=== PATIENT | male | born 1945 | race Caucasian/White ===

== ENCOUNTER 2022-12-03 10:33 | Outpatient (CLI) | payer MEDICARE, SELFPAY ==
[2022-12-03 15:23] LABS: Basophils Absolute Auto 0.1 K/mm3 (0.0-0.1); Basophils Percent Auto 0.8 % (0.2-1.2); Eosinophils Absolute Auto 0.5 K/mm3 (0-0.3); Eosinophils Percent Auto 5.2 % (0-4.4); Hemoglobin 13.8 g/dL (14.0-18.0); Immature Granulocyte Absolute 0.03 K/mm3 (0.00-0.031); Immature Granulocyte Percent A 0.3 % (0-0.5); Lymphocytes Absolute Auto 1.45 K/mm3 (0.9-3.2); Lymphocytes Percent Auto 16.5 % (18.3-44.2); Mean Corpuscular HGB Conc 32.1 g/dl (32-36); Mean Corpuscular Hemoglobin 30.9 pg (26-34); Mean Corpuscular Volume 96.2 fl (80-100); Mean Platelet Volume 10.9 fl (7.4-10.4); Monocytes Absolute Auto 0.9 K/mm3 (0.1-0.6); Monocytes Percent Auto 10.3 % (2.6-8.5); Neutrophils Absolute Auto 5.9 K/mm3 (1.3-6.7); Neutrophils Percent Auto 66.9 % (45.5-73.1); Platelet Count Result 258 k/mm3 (150-375); Red Blood Count 4.47 M/mm3 (4.6-6.20); Red Cell Distribution Width 12.6 % (11.5-14.5); White Blood Count 8.8 K/mm3 (4.5-10.0)
[2022-12-03 17:15] LABS: Alanine Aminotransferase 21 U/L (6-50); Albumin Level 4.9 g/dL (3.5-5.1); Alkaline Phosphatase 129 U/L (38-126); Anion Gap 9 mmol/L (8-16); Aspartate Amino Transferase 29 U/L (17-59); Bilirubin,Total 0.4 mg/dL (0.2-1.3); Blood Urea Nitrogen 28 mg/dL (9-20); Calcium 9.9 mg/dL (8.4-10.2); Carbon Dioxide 26 mmol/L (22-30); Chloride 107 mmol/L (98-107); Cholesterol 141 mg/dL (0-200); Estimated Glomerular Filt Rate 42; Glucose 94 mg/dL (65-110); HDL Direct 35 mg/dL; Potassium 4.9 mmol/L (3.4-5.0); Sodium 142 mmol/L (137-145); Triglycerides 162 mg/dL (<150)
[2022-12-03 17:25] LABS: LDL Cholesterol Direct 68 mg/dL
== END 2022-12-03 10:34 | disposition home or self-care (01) ==
LOC: ANHGOSHLAB 10:35
PROVIDERS: PCP Internal Medicine; Visit Provider Nurse Practitioner
DX: R97.20 Elevated prostate specific antigen [PSA] (principal); I10 Essential (primary) hypertension
CPT/HCPCS: 36415; 80053; 80061; 84153; 85025

== ENCOUNTER 2023-11-29 13:54 | Outpatient (CLI) | payer MEDICARE, SELFPAY ==
--- NOTE | ~2023-11-29 | US_ITS ---
EXAMINATION: US carotid duplex BI DATE: 11/29/2023 15:46 INDICATION: Unspecified visual disturbance TECHNIQUE: Grayscale, color Doppler, and pulsed Doppler images of the cervical carotid arteries were obtained. The degree of vessel stenosis is placed in one of the following categories: normal, <50%, 5 0-69%, >=70% but less than near-occlusion, near-occlusion, or total occlusion. Note that percent sten osis relative to normal distal artery lumen diameter is indirectly measured from velocity measurement s as described by Juve, et al. Radiology 2003; 229:340-346. COMPARISON: None. FINDINGS: RIGHT: The right common carotid artery (CCA) peak systolic velocity (PSV) is 85 cm/s. The right internal car otid artery (ICA) PSV is 86 cm/s. The right ICA end-diastolic velocity (EDV) is 20 cm/s. The right IC A/CCA PSV ratio is 1.0. Grayscale and color Doppler images yield an estimate of <50% diameter reducti on from plaque in the ICA. The external carotid artery (ECA) PSV is 113 cm/s. There is antegrade flow in the right vertebral artery. LEFT: The left CCA PSV is 71 cm/s. The left ICA PSV is 67 cm/s. The left ICA EDV is 21 cm/s. The left ICA/C CA PSV ratio is 1.0. Grayscale and color Doppler images yield an estimate of <50% diameter reduction from plaque in the ICA. The ECA PSV is 85 cm/s. There is antegrade flow in the left vertebral artery. IMPRESSION: 1. <50% stenosis in the right internal carotid artery. 2. <50% stenosis in the left internal carotid artery. Reviewed, dictated and finalized at location B.
== END 2023-11-29 13:55 | disposition home or self-care (01) ==
PROVIDERS: PCP Internal Medicine; Visit Provider Nurse Practitioner
DX: I65.23 Occlusion and stenosis of bilateral carotid arteries (principal)
CPT/HCPCS: 93880

== ENCOUNTER 2024-09-04 08:10 | Emergency (ER) | payer MEDICARE, MEDICAID, SELFPAY ==
--- NOTE | ~2024-09-04 | XR_ITS ---
XR hand RT min 3V, XR wrist RT min 3V 09/04/2024 08:46 Indication: Right hand pain and 4 views right wrist Procedure: 3 views right hand Comparison: No prior studies for comparison. Findings: There is severe polyarticular osteoarthritis of the hand with erosive changes at the third DIP joint. There is advanced polyarticular osteoarthritis of the right wrist with scapholunate wideni ng. There is atherosclerosis. 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 Reviewed, dictated and finalized at location A. 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
[2024-09-04 08:08] VITALS: BP 150/99; PULSE 83; RESP 16; TEMP 36.4; O2SAT 99
--- NOTE | 2024-09-04 08:16 | ED_ITS ---
HPI - General Adult General Chief complaint: Extremity Injury, Lower Stated complaint: R knee pain History of Present Illness HPI narrative: 79-year-old male present to the emergency department for evaluation for right wrist and right hand pain. Patient is unsure if he had any injury. Patient states the pain has been bothering him for the last few days. Patient does have tenderness across the dorsum of the right hand. No evidence of cellulitis. Related Data Allergies Allergy/AdvReac Type Severity Reaction Status Date / Time No Known Allergies Allergy Verified 09/04/24 08:19 Review of Systems Review of Systems: All systems reviewed & are unremarkable except as noted in HPI and below PMFSH Past Medical History Medical History Swallowing difficulty Hyperkalemia Hypercalcemia CKD (chronic kidney disease) Insomnia Hypertension Family History Family History Father Patient's father is Mother Natural with unknown cause Social History Social History Social History: Caffeine- daily Smoking status: Never smoker Alcohol intake: never Substance use: never Substance use type: does not use Do You Feel Safe in your Home?: Yes Lack of Transportation: No Lack of Food: Never True Current Housing: I Have Housing Concerned About Future Housing: No Difficulty Paying Gas/Electric Bills: No Difficulty Paying for Meds: No Currently Unemployed: No Education: High School Diploma/GED Difficulty w/ Childcare or Family Care: No Exam Narrative: APPEARANCE: Well appearing, no pain, no distress, well-nourished. HEAD: normocephalic, atraumatic. EYES: PERRLA/EOMI, conjunctivae clear. NOSE: Normal no drainage EARS:TMS clear with good light reflex. THROAT: Pharynx clear, no exudate. NECK: Supple. No adenopathy, no masses. RESPIRATORY: Airway patent, respirations nonlabored. Clear to auscultation bilaterally, no rales, rhonchi, wheezing. CARDIOVASCULAR: Regular rate and rhythm without murmurs rubs or gallops. ABDOMINAL: Soft, nontender, nondistended, normal bowel sounds MUSCULOSKELETAL: Tenderness to right hand with limited range of motion secondary to discomfort NEURO: Alert. Cranial nerves II through XII intact. Good gait. Good coordination SKIN: No evidence cellulitis, mild warmth to right hand Course Vital Signs Vital signs: Vital Signs Temperature 97.6 F 09/04/24 08:08 Pulse Rate 83 09/04/24 08:08 Respiratory Rate 16 09/04/24 08:08 Blood Pressure 150/99 H 09/04/24 08:08 Pulse Oximetry 99 09/04/24 08:08 Oxygen Delivery Room Air 09/04/24 08:08 Temperature 97.6 F 09/04/24 08:08 Pulse Rate 76 09/04/24 09:49 Respiratory Rate 18 09/04/24 09:49 Blood Pressure 148/94 H 09/04/24 09:49 Pulse Oximetry 100 09/04/24 09:49 Oxygen Delivery Room Air 09/04/24 08:08 Medical Decision Making MDM Narrative Medical decision making narrative: 79-year-old male presenting to the emergency department for evaluation for right hand tenderness to palpation x-rays were negative for acute fracture dislocation. Patient does not appear to have a cellulitis. Patient does have palpatory arthritis with degenerative changes. Patient was provided an Gray wrap for comfort, treated with IM Toradol emergency department patient will be discharged home with a short course of naproxen. Patient was updated the results of the workup patient was comfortable plan for discharge and close follow-up. Patient was encouraged close follow-up with his primary care physician Differential Diagnosis Differential Diagnosis: Hand fracture, wrist fracture, arthritis, cellulitis Vital Signs Vital Signs: Vital Signs Temperature 97.6 F 09/04/24 08:08 Pulse Rate 83 09/04/24 08:08 Respiratory Rate 16 09/04/24 08:08 Blood Pressure 150/99 H 09/04/24 08:08 Pulse Oximetry 99 09/04/24 08:08 Oxygen Delivery Room Air 09/04/24 08:08 Temperature 97.6 F 09/04/24 08:08 Pulse Rate 76 09/04/24 09:49 Respiratory Rate 18 09/04/24 09:49 Blood Pressure 148/94 H 09/04/24 09:49 Pulse Oximetry 100 09/04/24 09:49 Oxygen Delivery Room Air 09/04/24 08:08 Imaging Data Radiologist's impression: Impressions Hand X-Ray 09/04/24 08:48 Impression: 1: 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 Discharge Plan Discharge Clinical Impression: Inflammatory arthritis Patient Disposition: Home, Self-Care Condition: Stable Instructions: Antibiotic Form, Arthralgia (ED) Additional Instructions: Naproxen as directed for wrist pain, Gray wrap for comfort, have close follow-up with your primary care physician. If you have any worsening symptoms then please call or return to the emergency department. Patient Language: Kazakh Prescriptions: New naproxen 500 mg tablet 500 mg PO BID 5 Days Qty: 10 0RF No Action amlodipine 10 mg tablet See Rx Instructions .ROUTE .COMPLEX Qty: 90 3RF Dose Instruction: TAKE 1 TABLET BY MOUTH DAILY Rx Instructions: TAKE 1 TABLET BY MOUTH DAILY atorvastatin 10 mg tablet 10 mg PO QHS Qty: 90 3RF hydrochlorothiazide 25 mg tablet See Rx Instructions .ROUTE .COMPLEX Qty: 90 3RF Dose Instruction: TAKE 1 TABLET BY MOUTH DAILY Rx Instructions: TAKE 1 TABLET BY MOUTH DAILY lisinopril 40 mg tablet 40 mg PO DAILY Qty: 90 3RF doxepin 10 mg capsule 10 mg PO QHS PRN (Reason: sleep) Qty: 30 1RF Follow-up/Referrals: Abe Walden, [Primary Care Provider] -
[2024-09-04] MEDS: KETOROLAC 30 MG/ML VIAL (*BKC) IM (09:06)
[2024-09-04 09:11] VITALS: BP 164/91; PULSE 73; RESP 20; O2SAT 98
[2024-09-04 09:49] VITALS: BP 148/94; PULSE 76; RESP 18; O2SAT 100
== END 2024-09-04 09:50 | disposition home or self-care (01) ==
PROVIDERS: Emergency Provider Emergency Medicine; PCP Internal Medicine
DX: M19.041 Primary osteoarthritis, right hand (principal); M19.031 Primary osteoarthritis, right wrist; I12.9 Hypertensive chronic kidney disease with stage 1 through stage 4 chronic kidney disease, or unspecified chronic kidney disease; N18.9 Chronic kidney disease, unspecified
CPT/HCPCS: 73110; 73130; 96372; 99283; J1885

== ENCOUNTER 2024-09-11 10:33 | Emergency (ER) | payer MEDICARE, MEDICAID, SELFPAY ==
--- NOTE | ~2024-09-11 | CT_ITS ---
CT head without contrast Indication: Hand numbness Technique: Serial scans were obtained through the brain without the administration of contrast. Dose reduction technique was used on this scan by utilizing automated exposure control and iterative recon struction technique. The dose-length product (DLP) was 605.33 mGy-cm. Findings: There is no evidence of intracranial hemorrhage, mass lesion, or acute infarct. The ventri cles and subarachnoid spaces are dilated, consistent with moderate atrophy. Low attenuation regions are seen within the periventricular white matter bilaterally, likely representing changes from chroni c microvascular ischemic disease. There is no evidence of edema, mass effect or midline shift. The visualized paranasal sinuses and mastoid air cells are clear. Impression: No intracranial hemorrhage, mass, or acute infarct. Atrophy and chronic white matter changes, as above. Reviewed, dictated and finalized at location . Impression: No intracranial hemorrhage, mass, or acute infarct. Atrophy and chronic white matter changes, as above.
--- NOTE | ~2024-09-11 | XR_ITS ---
Clinical Indication: Hand numbness PA and lateral views of the chest: Comparison: None Findings: The lungs are clear, without evidence of focal consolidation or pleural effusion. Cardiome diastinal silhouette is within normal limits. Bones and soft tissues are unremarkable. Impression: Normal chest. Reviewed, dictated and finalized at location . Impression: Normal chest.
[2024-09-11 10:35] VITALS: BP 163/80; PULSE 92; RESP 16; TEMP 36.6; O2SAT 98
[2024-09-11 13:21] VITALS: PULSE 93; RESP 19; O2SAT 99
[2024-09-11 13:29] VITALS: PULSE 80
[2024-09-11 13:30] VITALS: BP 142/86; PULSE 106; RESP 27; O2SAT 97
--- NOTE | 2024-09-11 13:31 | ECG_ITS ---
Test Date: 2024-09-11 13:43:12 Measurements Intervals [place] Rate: 91 P: 62 DC: 150 QRS: -54 QRSD: 86 T: 31 QT: 336 QTc: 415 Interpretive Statements SINUS RHYTHM LEFT ANTERIOR FASCICULAR BLOCK BASELINE ARTIFACT- I, II, III, AVR, AVL, AVF, V1-V6 ABNORMAL ECG No previous ECG available for comparison Electronically Signed On 09-11-2024 13:43:43 CDT by Peter Escobar D.O.
[2024-09-11 14:30] VITALS: BP 149/89; PULSE 91; RESP 16; O2SAT 98
[2024-09-11 14:34] LABS: Basophils Percent Auto 0.4 % (0.2-1.2); Eosinophils Absolute Auto 0.4 K/mm3 (0-0.3); Hematocrit 42.7 % (42.0-52.0); Hemoglobin 14.1 g/dL (14.0-18.0); Immature Granulocyte Absolute 0.07 K/mm3 (0.00-0.031); Immature Granulocyte Percent A 0.6 % (0-0.5); Lymphocytes Absolute Auto 1.45 K/mm3 (0.9-3.2); Lymphocytes Percent Auto 13.4 % (18.3-44.2); Mean Corpuscular Hemoglobin 30.3 pg (26-34); Mean Corpuscular Volume 91.6 fl (80-100); Mean Platelet Volume 9.4 fl (7.4-10.4); Monocytes Absolute Auto 0.9 K/mm3 (0.1-0.6); Monocytes Percent Auto 8.4 % (2.6-8.5); Neutrophils Absolute Auto 7.9 K/mm3 (1.3-6.7); Neutrophils Percent Auto 73.2 % (45.5-73.1); Platelet Count Result 455 k/mm3 (150-375); Red Blood Count 4.66 M/mm3 (4.6-6.20); Red Cell Distribution Width 13.1 % (11.5-14.5); White Blood Count 10.8 K/mm3 (4.5-10.0)
[2024-09-11 14:38] LABS: Add Urine Microscopic? NO; Appearance Urine Clear (Clear); Bilirubin Urine Negative (Negative); Blood Urine Negative (Negative); Color Urine Yellow (Yellow); Glucose Urine UA Negative (Negative); Ketones Urine Negative (Negative); Leukocyte Esterase Ur Negative LEU/UL (Negative); Nitrate Urine Negative (Negative); Protein Urine Negative (Negative); Specific Grav Ur 1.013 (1.001-1.035); Urobilinogen Urine 0.2 mg/dL (<2.0)
[2024-09-11 14:45] LABS: Potassium 4.2 mmol/L (3.4-5.0)
[2024-09-11 14:50] LABS: Alanine Aminotransferase 22 U/L (6-50); Albumin Level 4.5 g/dL (3.5-5.1); Alkaline Phosphatase 173 U/L (38-126); Anion Gap 11 mmol/L (4-12); Aspartate Amino Transferase 25 U/L (17-59); Bilirubin,Total 0.5 mg/dL (0.2-1.3); Blood Urea Nitrogen 25 mg/dL (9-20); Calcium 9.8 mg/dL (8.4-10.2); Carbon Dioxide 26 mmol/L (22-30); Chloride 103 mmol/L (98-107); Estimated Glomerular Filt Rate > 60; Glucose 104 mg/dL (65-110); Sodium 140 mmol/L (137-145)
[2024-09-11 15:30] VITALS: BP 167/90; PULSE 92; RESP 18; TEMP 36.6; O2SAT 98
--- NOTE | 2024-09-11 16:12 | ED_ITS ---
HPI - General Adult General Chief complaint: Weakness Stated complaint: unable to walk, numb hands Time Seen by Provider: 09/11/24 13:26 History of Present Illness HPI narrative: Patient is a 79-year-old male who presents ER with concerns for tingling and numbness in his hands. This has been a chronic issue for him. Reports sometimes has hard time gripping things. No new fevers or chills or sweats. He is unable to tell me why he has history of tingling to the hands chronically. Occasionally has trouble walking. Related Data Allergies Allergy/AdvReac Type Severity Reaction Status Date / Time No Known Allergies Allergy Verified 09/11/24 10:38 Review of Systems 2 Review of Systems: All systems reviewed & are unremarkable except as noted in HPI and below Constitutional: Constitutional: Reports no additional constitutional complaints ENT: Reports system reviewed and no additional complaints, except as documented Cardiovascular: Cardiovascular: Reports no additional cardiovascular complaints Respiratory: Respiratory: Reports no additional respiratory complaints Gastrointestinal: Gastrointestinal: Reports no additional gastrointestinal complaints [facility] Past Medical History Medical History Swallowing difficulty Hyperkalemia Hypercalcemia CKD (chronic kidney disease) Insomnia Hypertension Family History Family History Father Patient's father is Mother Natural with unknown cause Social History Social History Social History: Caffeine- daily Smoking status: Never smoker Alcohol intake: never Substance use: never Substance use type: does not use Do You Feel Safe in your Home?: Yes Lack of Transportation: No Lack of Food: Never True Current Housing: I Have Housing Concerned About Future Housing: No Difficulty Paying Gas/Electric Bills: No Difficulty Paying for Meds: No Currently Unemployed: No Education: High School Diploma/GED Difficulty w/ Childcare or Family Care: No Exam 2 Narrative: GENERAL: Well-appearing, well-nourished, and moving around the bed without issue. HEAD: Normocephalic, atraumatic. EYES: PERRL and EOMI. ENT:Mucous membranes moist. CHEST: Clear to auscultation. No respiratory distress. HEART: Regular rate and rhythm. Normal peripheral pulses. ABDOMEN: Soft, nontender, nondistended. EXTREMITIES: Normal range of motion strength in the legs bilaterally. Patient seems to have some limited mobility of the shoulders but has normal range of motion of the hands and elbows. No tenderness or swelling to shoulders bilaterally. No edema. SKIN: Warm, dry, no rash. NEURO: Patient without upper or lower extremity drift. Patient is able to perform [id number] and [id number] testing. Reports decreased pinprick in the hands bilaterally. No dysarthria or expressive aphasia. No facial droop. Alert and oriented x3. Course Course Emergency Course: Unremarkable evaluation. Discharge home recommend follow-up with PCP. Patient verbalized understanding. Vital Signs Vital signs: Vital Signs Temperature 97.9 F 09/11/24 10:35 Pulse Rate 92 09/11/24 10:35 Respiratory Rate 16 09/11/24 10:35 Blood Pressure 163/80 H 09/11/24 10:35 Pulse Oximetry 98 09/11/24 10:35 Oxygen Delivery Room Air 09/11/24 10:35 Temperature 97.8 F 09/11/24 15:30 Pulse Rate 92 09/11/24 15:30 Respiratory Rate 18 09/11/24 15:30 Blood Pressure 167/90 H 09/11/24 15:30 Pulse Oximetry 98 09/11/24 15:30 Oxygen Delivery Room Air 09/11/24 10:35 Medical Decision Making Vital Signs Vital Signs: Vital Signs Temperature 97.9 F 09/11/24 10:35 Pulse Rate 92 09/11/24 10:35 Respiratory Rate 16 09/11/24 10:35 Blood Pressure 163/80 H 09/11/24 10:35 Pulse Oximetry 98 09/11/24 10:35 Oxygen Delivery Room Air 09/11/24 10:35 Temperature 97.8 F 09/11/24 15:30 Pulse Rate 92 09/11/24 15:30 Respiratory Rate 18 09/11/24 15:30 Blood Pressure 167/90 H 09/11/24 15:30 Pulse Oximetry 98 09/11/24 15:30 Oxygen Delivery Room Air 09/11/24 10:35 Lab Data 09/11/24 14:24 09/11/24 14:24 Labs: Lab Results 09/11/24 Range/Units 14:24 WBC 10.8 H (4.5-10.0) K/mm3 RBC 4.66 (4.6-6.20) M/mm3 Hgb 14.1 (14.0-18.0) g/dL Hct 42.7 (42.0-52.0) % MCV 91.6 (80-100) fl MCH 30.3 (26-34) pg MCHC 33.0 (32-36) g/dl RDW 13.1 (11.5-14.5) % Plt Count 455 H D (150-375) k/mm3 MPV 9.4 (7.4-10.4) fl Immature Gran % (Auto) 0.6 H (0-0.5) % Neut % (Auto) 73.2 H (45.5-73.1) % Lymph % (Auto) 13.4 L (18.3-44.2) % Emmons % (Auto) 8.4 (2.6-8.5) % Eos % (Auto) 4.0 (0-4.4) % Baso % (Auto) 0.4 (0.2-1.2) % Lymph # (Auto) 1.45 (0.9-3.2) K/mm3 Emmons # (Auto) 0.9 H (0.1-0.6) K/mm3 Eos # (Auto) 0.4 H (0-0.3) K/mm3 Baso # (Auto) 0.0 (0.0-0.1) K/mm3 Abs Immat Gran (auto) 0.07 H (0.00-0.031) K/mm3 Absolute Neuts (auto) 7.9 H (1.3-6.7) K/mm3 Absolute Nucleated RBC 0.000 (0.0-0.012) K/mm3 Nucleated RBC % 0.0 (0.0-0.2) % Sodium 140 (137-145) mmol/L Potassium 4.2 (3.4-5.0) mmol/L Chloride 103 (98-107) mmol/L Carbon Dioxide 26 (22-30) mmol/L Anion Gap 11 (4-12) mmol/L BUN 25 H (9-20) mg/dL Creatinine 1.13 (0.7-1.3) mg/dL Estim Creat Clear Calc Not Reportable Estimated GFR > 60 (59 - ) Glucose 104 (65-110) mg/dL Calcium 9.8 (8.4-10.2) mg/dL Total Bilirubin 0.5 (0.2-1.3) mg/dL AST 25 (17-59) U/L ALT 22 (6-50) U/L Alkaline Phosphatase 173 H (38-126) U/L Total Protein 8.0 (6.3-8.2) g/dL Albumin 4.5 (3.5-5.1) g/dL Urine Color Yellow (Yellow) Urine Appearance Clear (Clear) Urine pH 5.0 (5.0-9.0) Ur Specific Lynn 1.013 (1.001-1.035) Urine Protein Negative (Negative) mg/dL Urine Glucose (UA) Negative (Negative) mg/dL Urine Ketones Negative (Negative) mg/dL Ur Blood (Man) Negative (Negative) Urine Nitrate Negative (Negative) Urine Bilirubin Negative (Negative) Urine Urobilinogen 0.2 (<2.0) mg/dL Leukocyte Esterase Rfl Negative (Negative) TIKA/UL Imaging Data Radiologist's impression: ITS Impressions Head CT 09/11/24 13:53 Impression: No intracranial hemorrhage, mass, or acute infarct. Atrophy and chronic white matter changes, as above. Chest X-Ray 09/11/24 13:55 Impression: Normal chest. Discharge Plan Discharge Clinical Impression: Paresthesia Patient Disposition: Home Condition: Stable Instructions: Paresthesia (ED) Additional Instructions: Follow-up with your primary care doctor over the hand tingling that you had chronically. Return the ER if you lose consciousness, you fall and injure herself, have additional concerns. Patient Language: Cypriot Prescriptions: No Action amlodipine 10 mg tablet See Rx Instructions .ROUTE .COMPLEX Qty: 90 3RF Dose Instruction: TAKE 1 TABLET BY MOUTH DAILY Rx Instructions: TAKE 1 TABLET BY MOUTH DAILY atorvastatin 10 mg tablet 10 mg PO QHS Qty: 90 3RF hydrochlorothiazide 25 mg tablet See Rx Instructions .ROUTE .COMPLEX Qty: 90 3RF Dose Instruction: TAKE 1 TABLET BY MOUTH DAILY Rx Instructions: TAKE 1 TABLET BY MOUTH DAILY lisinopril 40 mg tablet 40 mg PO DAILY Qty: 90 3RF doxepin 10 mg capsule 10 mg PO QHS PRN (Reason: sleep) Qty: 30 1RF naproxen 500 mg tablet 500 mg PO BID 5 Days Qty: 10 0RF Follow-up/Referrals: Abe Walden, [Primary Care Provider] - 1 Week
== END 2024-09-11 17:13 | disposition home or self-care (01) ==
PROVIDERS: Emergency Provider Emergency Medicine; PCP Internal Medicine
DX: R20.2 Paresthesia of skin (principal); I12.9 Hypertensive chronic kidney disease with stage 1 through stage 4 chronic kidney disease, or unspecified chronic kidney disease; N18.9 Chronic kidney disease, unspecified
CPT/HCPCS: 36415; 70450; 71046; 80053; 81003; 85025; 93005; 99284

== ENCOUNTER 2024-10-06 12:16 | Outpatient (CLI) | payer MEDICARE, MEDICAID, SELFPAY ==
--- NOTE | ~2024-10-06 | MR_ITS ---
MRI of the brain Clinical History: Anesthesia scan Technique: Axial and sagittal T1-weighted images were acquired. These were followed by axial T2-weigh alix, diffusion weighted, gradient, and FLAIR images. Following intravenous administration of 15 cc Pr oHance gadolinium, T1-weighted fat-sat imaging was performed in the axial and coronal planes. Findings: There is no acute infarct, intracranial hemorrhage, or mass lesion. There are mild to moder ate chronic white matter changes in the periventricular white matter bilaterally. Ventricles and subarachnoid spaces are dilated. Orbits are unremarkable. There is extensive mucosal t hickening involving the sphenoid sinuses, ethmoid sinuses, right frontal sinus, and bilateral maxilla ry sinuses. There is left mastoid effusion. Major intracranial flow voids appear intact. Sagittal midline structures are intact. No abnormal postcontrast enhancement identified. IMPRESSION: No acute intracranial abnormality. Mild to moderate chronic microvascular ischemic change, and mild generalized atrophy. Pansinusitis and left mastoid effusion. Reviewed, dictated and finalized at location . IMPRESSION: No acute intracranial abnormality. Mild to moderate chronic microvascular ischemic change, and mild generalized at rophy. Pansinusitis and left mastoid effusion.
== END 2024-10-06 12:17 | disposition home or self-care (01) ==
PROVIDERS: PCP Internal Medicine; Visit Provider Nurse Practitioner
DX: I67.82 Cerebral ischemia (principal); G31.9 Degenerative disease of nervous system, unspecified; J32.4 Chronic pansinusitis; H74.8X2 Other specified disorders of left middle ear and mastoid
CPT/HCPCS: 70553; A9579

== ENCOUNTER 2024-10-10 11:19 | Outpatient (CLI) | payer MEDICARE, MEDICAID, SELFPAY ==
[2024-10-10 14:03] LABS: Anion Gap 13 mmol/L (4-12); Blood Urea Nitrogen 36 mg/dL (9-20); Calcium 9.9 mg/dL (8.4-10.2); Carbon Dioxide 20 mmol/L (22-30); Chloride 106 mmol/L (98-107); Creatine Kinase 167 U/L (55-170); Estimated Glomerular Filt Rate 49; Glucose 89 mg/dL (65-110); Potassium 4.2 mmol/L (3.4-5.0); Sodium 139 mmol/L (137-145)
[2024-10-10 14:20] LABS: Rheumatoid Factor < 12.0 IU/ML (<12)
[2024-10-11 17:43] LABS: ANA Cascade Screen NEGATIVE (NEGATIVE)
== END 2024-10-10 11:20 | disposition home or self-care (01) ==
LOC: ANHGOSHLAB 11:20
PROVIDERS: PCP Internal Medicine; Visit Provider Nurse Practitioner
DX: R53.1 Weakness (principal); N18.9 Chronic kidney disease, unspecified
CPT/HCPCS: 36415; 80048; 82550; 84443; 86038; 86225; 86235; 86364; 86430

== ENCOUNTER 2024-11-28 14:55 | Outpatient (CLI) | payer MEDICARE, MEDICAID, SELFPAY ==
[2024-11-28 19:23] LABS: Erythrocyte Sedimentation Rate 21 mm/hr (0-20)
[2024-11-28 19:25] LABS: Anion Gap 12 mmol/L (4-12); Blood Urea Nitrogen 23 mg/dL (9-20); Carbon Dioxide 21 mmol/L (22-30); Chloride 111 mmol/L (98-107); Estimated Glomerular Filt Rate 52; Glucose 90 mg/dL (65-110); Potassium 4.3 mmol/L (3.4-5.0); Sodium 144 mmol/L (137-145)
[2024-11-28 19:56] LABS: Prostate Specific Antigen 3.6 ng/mL (< OR = 4.0)
[2024-12-01 03:58] LABS: Immunoglobulin A 233 mg/dL (70-320); TTG IGA AB <1.0 U/mL
== END 2024-11-28 14:56 | disposition home or self-care (01) ==
LOC: ANHGOSHLAB 14:57
PROVIDERS: PCP Nurse Practitioner; Visit Provider Nurse Practitioner
DX: R20.0 Anesthesia of skin (principal); R20.2 Paresthesia of skin; R19.7 Diarrhea, unspecified; N18.30 Chronic kidney disease, stage 3 unspecified; Z12.5 Encounter for screening for malignant neoplasm of prostate
CPT/HCPCS: 36415; 80048; 82607; 82784; 84153; 85652; G0103

== ENCOUNTER 2024-12-25 14:31 | Outpatient (CLI) | payer MEDICARE, MEDICAID, SELFPAY ==
--- NOTE | ~2024-12-25 | MR_ITS ---
EXAMINATION: MR cervical spine wo con DATE: 12/25/2024 15:41 INDICATION: Cervical radiculopathy. TECHNIQUE: Magnetic resonance imaging (MRI) of the cervical spine was performed without intravenous c ontrast. Sequences included sagittal T2-weighted FSE, sagittal T2-weighted FS FSE, sagittal T1-weight ed FSE, axial MERGE, and axial T2 PROPELLER. COMPARISON: None FINDINGS: Craniocervical association and atlantoaxial joint are intact. Moderate degenerative change at the atlantoaxial joint, with atlantodental joint fluid and small pannus. Cervical straightening. 4 mm retrolisthesis at L3-4. 2 mm anterolisthesis at C7-T1. Vertebral body heights are maintained. Deg enerative disc changes at all levels, severe at C3-4 and C4-5. Minimal prevertebral fluid anterior to C3-C5. No fluid in the disc spaces. Abnormal cord signal spanning C2-3 through C5-6. Possible 11 mm long syrinx in the cord at the level of C3. Severe narrowing at C3-4 with deformation of the cord. Th e following disc levels are specifically discussed: C2-C3: The disc does not extend beyond the endplate margin. There is mild left uncovertebral joint os teoarthritis. There is mild right and moderate left facet joint osteoarthritis. There is mild left ne ural foraminal stenosis. There is no central canal stenosis. C3-C4: Mild disc bulge. Large posterior disc osteophyte complex. There is severe left and moderate ri ght uncovertebral joint osteoarthritis. There is mild right and moderate left facet joint osteoarthri tis. There is moderate right and severe left neural foraminal stenosis. There is severe central canal stenosis. C4-C5: Mild disc bulge/posterior osteophyte complex. There is mild bilateral uncovertebral joint oste oarthritis. There is moderate bilateral facet joint osteoarthritis. There is moderate bilateral neura l foraminal stenosis. There is moderate central canal stenosis. C5-C6: Right paracentral disc osteophyte complex. There is severe right and moderate left uncovertebr al joint osteoarthritis. There is mild bilateral facet joint osteoarthritis. There is moderate bilate ral neural foraminal stenosis. There is mild central canal stenosis. C6-C7: Mild disc bulge There is mild bilateral uncovertebral joint osteoarthritis. There is mild bila teral facet joint osteoarthritis. There is moderate right and mild left neural foraminal stenosis. Th ere is no central canal stenosis. C7-T1: The disc does not extend beyond the endplate margin. There is mild bilateral uncovertebral marleni nt osteoarthritis. There is mild bilateral facet joint osteoarthritis. There is no neural foraminal s tenosis. There is no central canal stenosis. IMPRESSION: Severe degenerative disc disease at C3-4 and C4-5. Severe C3-4 and moderate C4-5 central canal stenosis, secondary to degenerative changes, with abnorma l cord edema spanning C2-3 through C5-6 and possible small syrinx at the level of C3. Severe left neural foraminal stenosis at C3-4, secondary to degenerative changes. Multilevel facet arthropathy. Reviewed, dictated and finalized at location K. IMPRESSION: Severe degenerative disc disease at C3-4 and C4-5. Severe C3-4 and moderate C4-5 central canal stenosis, secondary to degenerative changes, with abnormal cord edema spanning C2-3 through C5-6 and possible smal l syrinx at the level of C3. Severe left neural foraminal stenosis at C3-4, secondary to degenerative change s. Multilevel facet arthropathy.
--- NOTE | ~2024-12-25 | MR_ITS ---
EXAMINATION: MR thoracic spine wo con DATE: 12/25/2024 15:41 INDICATION: R53.1 - Weakness TECHNIQUE: Magnetic resonance imaging (MRI) of the thoracic spine was performed without intravenous c ontrast. Sequences included sagittal T1, FSE T2, STIR; axial T2 COMPARISON: None FINDINGS: There is motion artifact in the axial sequence. The cord is normal in signal and caliber. No suspicio us focal or diffuse marrow signal. Conus terminates at L1-2. No significant scoliosis. Vertebral bodi es are aligned. Vertebral body heights are maintained. Moderate degenerative disc disease at T9-10 an d T10-11. Moderate. Bilateral neural foraminal narrowing at these levels Moderate bilobed bulge at T1 0-11 causing moderate central canal narrowing at T10-11. Mild degenerative disc changes present at mu ltiple additional levels in the thoracic spine Multilevel mild facet arthropathy. IMPRESSION: Moderate degenerative disc disease at T9-10 and T10-11, with moderate bilateral neural foraminal narr owing at these levels. Moderate central canal stenosis at T10-11. Reviewed, dictated and finalized at location K. IMPRESSION: Moderate degenerative disc disease at T9-10 and T10-11, with moderate bilateral neural foraminal narrowing at these levels. Moderate central canal stenosis at T10-11.
--- OUTSIDE RECORDS SUMMARY | 2024-12-25 14:36 | XMS_ITS | Clinical Summary ---
Author Organization [facility] [place] Address [address] [place] [address] Care Team Providers Care [address] Vendor Name Role Phone Abe Walden DO Primary Care Provider [phone] Allergies No known active allergies Medications amoxicillin-cla vulanate (AUGMENTIN) 875-125 mg per tablet Take 1 tablet by mouth every 12 (twelve) hours 14 tablet 5 Active ciprofloxacin-d exAMETHasone (CIPRODEX) otic suspension Administer 4 drops into the right ear 2 (two) times a day 7.5 mL 5 Active Encounters Date Type Department Care Team Description 12/24/2024 Results Follow-Up [facility] Emergency Department [address] [place] [address] Rajan Guzman RN XR Chest 1 Vw Portable 12/21/2024 12:21 PM CDT - 12/21/2024 6:39 PM CDT Emergency [facility] Department [address] [place] [address] Pedrito Elizabeth MD Schneider, Horacio Noble MD Dizziness (Primary Dx); Cerebral ventricular distension; Aortic ectasia; Atherosclerotic ulcer of aorta; Pancreatic cyst Discharge Disposition: Left Against Medical Advice 11/26/2024 3:34 PM CDT - 11/26/2024 5:30 PM CDT Emergency [facility] Emergency Department [address] [place] [address] Right otitis media, unspecified otitis media type (Primary Dx); Otitis externa of right ear, unspecified chronicity, unspecified type Discharge Disposition: Discharge to home or self care 11/12/2024 3:48 PM CDT - 11/12/2024 11:59 PM CDT Hospital Encounter [facility] [address] [place] [address] Weakness; Repeated falls Discharge Disposition: Discharge to home or self care from Last 3 Months Social History Tobacco Use Types Packs/Day Years Used Date Smoking Tobacco: Never Assessed Personal Safety Answer Date Recorded Have you ever been in or are you currently in a harmful physical or emotional relationship or is someone making you feel afraid or unsafe? Denies 12/21/2024 Sex and Gender Information Value Date Recorded Sex Assigned at Not on file Legal Sex Male 8:48 AM CDT Gender Identity Not on file Sexual Orientation Not on file Last Filed Vital Signs Vital Sign Reading Time Taken Comments Blood Pressure 158/89 12/21/2024 1:30 PM CDT Pulse 89 12/21/2024 1:30 PM CDT Temperature 36.4 C (97.6 F) 12/21/2024 10:37 AM CDT Respiratory Rate 18 12/21/2024 10:37 AM CDT Oxygen Saturation 95% 12/21/2024 1:30 PM CDT Inhaled Oxygen Concentration - - Weight 79.4 kg (175 lb 0.7 oz) 12/21/2024 10:37 AM CDT Height 165.1 cm (5' 5) 12/21/2024 10:37 AM CDT Body Mass Index 29.13 12/21/2024 10:37 AM CDT Plan of Treatment Health Maintenance Due Date Last Done Comments Depression Screening 1945 Fall Risk Assessment 1945 Hepatitis C Screening 1945 DTaP/Tdap/Td Vaccine (1 - Tdap) 1956 Hepatitis B Screening 1963 Pneumococcal vaccine 65+ (1 of 1 - PCV) 1995 Zoster Vaccine (1 of 2) 1995 Well Visit 65+ 2010 Influenza Vaccine (#1) 2025 Procedures Procedure Name Priority Date/Time Associated Diagnosis Comments CTA CHEST ABDOMEN PELVIS ED 12/21/2024 4:[address] HEAD AND CERVICAL SPINE WO CONTRAST ED Urgent/IP Urgent 12/21/2024 4:06 PM CDT XR CHEST 1 VIEW ED 12/21/2024 2:27 PM CDT RPR STAT 12/21/2024 2:07 PM CDT FOLATE STAT 12/21/2024 11:54 AM CDT VITAMIN B12 STAT 12/21/2024 11:54 AM CDT ETHANOL STAT 12/21/2024 11:54 AM CDT THYROID FUNCTION CASCADE STAT 12/21/2024 11:54 AM CDT EGFR STAT 12/21/2024 11:54 AM CDT DIFFERENTIAL AUTO STAT 12/21/2024 11: 54 AM CDT COMPREHENSIVE METABOLIC PANEL STAT 12/21/2024 11:54 AM CDT CBC WITH AUTO DIFFERENTIAL STAT 12/21/2024 11:54 AM CDT ECG 12-LEAD STAT 12/21/2024 10:48 AM CDT MRI LUMBAR SPINE WO CONTRAST Schedule Routine, Read Routine (OP Routine) 11/12/2024 4:27 PM CDT Weakness Repeated falls from Last 3 Months Results * CT Head and Cervical Spine WO Contrast (12/21/2024 4:06 PM CDT) Anatomical Region Laterality Modality Head and Neck N/A Computed Tomogra phy 12/21/2024 4:33 PM CDT Impressions 12/21/2024 5:01 PM CDT 1. No acute intracranial process. 2. No evidence of acute fracture in the cervical spine. 3. Prominence of the lateral ventricles, which appear out of proportion to the degree of parenchymal volume loss. These radiographic findings could be seen in the setting of normal pressure hydrocephalus, recommend correlation with clinical findings. Dictated by: Horacio Whitfield M.D. The radiology attending physician has personally reviewed this study, and had reviewed and/or edited this written report and agrees with it. Electronically signed by: Gabriele Morgan M.D. Narrative 12/21/2024 5:01 PM CDT EXAMINATION: 1. CT head without contrast 2. CT of the cervical spine without contrast HISTORY: 79-year-old with reported history of confusion and reported falls. TECHNIQUE: CT of the head was performed with images acquired from skull base to vertex without intravenous contrast. CT of the cervical spine was performed according to the standard protocol without intravenous contrast. COMPARISON: None Available. FINDINGS: HEAD: The size of the lateral ventricles is slightly out of proportion to the degree of volume loss. Scattered ill-defined hypodensities in the periventricular and subcortical white matter are nonspecific, likely on the basis of chronic small vessel ischemic change. There is mild global parenchymal volume loss. There are atherosclerotic calcifications of the intracranial vessels. There is no acute intracranial hemorrhage. Ventricles are otherwise of normal size and morphology. No mass effect or midline shift is present. The barrera-white matter differentiation is normal. The visualized portions of the orbits are normal. Moderate diffuse paranasal sinus disease. Left middle ear and mastoid effusion. No fractures are identified. CERVICAL SPINE: Straightening of the cervical spine. There is mild anterolisthesis of C4 on C5. There is no acute fracture. Vertebral bodies are normal in height without compression fractures. Multilevel degenerative disc space of the cervical spine most significant spanning C3-C7. Up to severe spinal canal stenosis at C3-C4. Multilevel facet and uncovertebral joint arthropathy. The craniocervical junction is normal. Limited views of the skull base appear normal. Moderate burden of mucosal sinus disease.. No soft tissue abnormality is identified. Calcifications of the carotid bifurcations bilaterally. Procedure Note Gabriele Morgan MD - 12/21/2024 EXAMINATION: 1. CT head without contrast 2. CT of the cervical spine without contrast HISTORY: 79-year-old with reported history of confusion and reported falls. TECHNIQUE: CT of the head was performed with images acquired from skull base to vertex without intravenous contrast. CT of the cervical spine was performed according to the standard protocol without intravenous contrast. COMPARISON: None Available. FINDINGS: HEAD: The size of the lateral ventricles is slightly out of proportion to the degree of volume loss. Scattered ill-defined hypodensities in the periventricular and subcortical white matter are nonspecific, likely on the basis of chronic small vessel ischemic change. There is mild global parenchymal volume loss. There are atherosclerotic calcifications of the intracranial vessels. There is no acute intracranial hemorrhage. Ventricles are otherwise of normal size and morphology. No mass effect or midline shift is present. The barrera-white matter differentiation is normal. The visualized portions of the orbits are normal. Moderate diffuse paranasal sinus disease. Left middle ear and mastoid effusion. No fractures are identified. CERVICAL SPINE: Straightening of the cervical spine. There is mild anterolisthesis of C4 on C5. There is no acute fracture. Vertebral bodies are normal in height without compression fractures. Multilevel degenerative disc space of the cervical spine most significant spanning C3-C7. Up to severe spinal canal stenosis at C3-C4. Multilevel facet and uncovertebral joint arthropathy. The craniocervical junction is normal. Limited views of the skull base appear normal. Moderate burden of mucosal sinus disease.. No soft tissue abnormality is identified. Calcifications of the carotid bifurcations bilaterally. IMPRESSION: 1. No acute intracranial process. 2. No evidence of acute fracture in the cervical spine. 3. Prominence of the lateral ventricles, which appear out of proportion to the degree of parenchymal volume loss. These radiographic findings could be seen in the setting of normal pressure hydrocephalus, recommend correlation with clinical findings. Dictated by: Horacio Whitfield M.D. The radiology attending physician has personally reviewed this study, and had reviewed and/or edited this written report and agrees with it. Electronically signed by: Gabriele Morgan M.D. Henok Small MD IMG CT PROCEDURES Fi nal Result * CTA Chest Abdomen Pelvis (12/21/2024 4:06 PM CDT) Anatomical Region Laterality Modality Body N/A Computed Tomogra phy 12/21/2024 5:22 PM CDT Impressions 12/21/2024 5:27 PM CDT 1. Focal ectasia of the infrarenal abdominal aorta measuring 2.5 by 2.4 cm, likely a penetrating atherosclerotic ulcer or chronic focal dissection. 2. The 1 cm pancreatic head cystic lesion could represent side branch IPMN. Recommend follow up of the Incidental pancreatic lesion Additional Imaging In 12 Months with MRI pancreas. 3. Left adrenal 1.2 cm nodule probably adrenal adenoma. Recommend follow up of the Incidental adrenal nodule Additional Imaging In [address] or MRI. Dictated by: Spike Rider M.D. The radiology attending physician has personally reviewed this study, and had reviewed and/or edited this written report and agrees with it. Electronically signed by: Bi Patrick M.D. Narrative 12/21/2024 5:27 PM CDT EXAMINATION: CT ANGIOGRAPHY OF THE CHEST, ABDOMEN AND PELVIS WITH AND WITHOUT CONTRAST HISTORY: Weakness TECHNIQUE: Computed tomographic images of the chest, abdomen and pelvis were acquired without and with intravenous contrast using an angiographic protocol optimized for aortic dissection (aorta). The contrast enhanced transaxial images were obtained following the intravenous administration of 91 ml of nonionic contrast. Multiplanar reformatted images and three-dimensional images of the aorta and associated vasculature were obtained on the 3-D workstation and sent to the PACS archival system. COMPARISON: No prior for comparison FINDINGS: Chest: No acute aortic dissection or intramural hematoma. Infrarenal abdominal aorta focal ectasia measuring 2.5 by 2.4 cm. There is eccentric dilation likely a small penetrating atherosclerotic ulcer. The celiac trunk, superior mesenteric artery, inferior mesenteric artery are patent. There is mild to moderate stenosis of the superior mesenteric artery. There are calcified and noncalcified atherosclerotic plaques in the aorta. No pulmonary embolism. The upper airway is normal. The thyroid is unremarkable. No supraclavicular, axillary mediastinal, or hilar lymphadenopathy. Severe coronary atherosclerosis present. No pericardial effusion. Mild right basilar atelectasis. No pulmonary consolidation. No pleural effusion. No pneumothorax. Abdomen/Pelvis: No focal liver lesion. Cholelithiasis without acute cholecystitis. There is a 1 cm cystic pancreatic lesion seen on series 6 image 294 of 641, could be side branch intraductal papillary mucinous neoplasm. The kidneys are symmetrically enhancing without hydronephrosis. There is a 1.2 cm left adrenal nodule seen on series 6 image 303 of 641. Right adrenal gland is normal. Phyllis-appearing mesentery likely panniculitis with reactive lymph nodes. Normal caliber small and large intestines. No sign of intestinal obstruction. The appendix is normal. Enlarged prostate. No organized fluid or free air in the pelvis. No pneumoperitoneum or ascites. Partially duplicated inferior vena cava. No pelvic or abdominal lymphadenopathy. Degenerative changes of the thoracic and lumbar spine. Anterolisthesis of L5 and S1. No suspicious osseous lesion. Procedure Note Bi Patrick MD - 12/21/2024 EXAMINATION: CT ANGIOGRAPHY OF THE CHEST, ABDOMEN AND PELVIS WITH AND WITHOUT CONTRAST HISTORY: Weakness TECHNIQUE: Computed tomographic images of the chest, abdomen and pelvis were acquired without and with intravenous contrast using an angiographic protocol optimized for aortic dissection (aorta). The contrast enhanced transaxial images were obtained following the intravenous administration of 91 ml of nonionic contrast. Multiplanar reformatted images and three-dimensional images of the aorta and associated vasculature were obtained on the 3-D workstation and sent to the PACS archival system. COMPARISON: No prior for comparison FINDINGS: Chest: No acute aortic dissection or intramural hematoma. Infrarenal abdominal aorta focal ectasia measuring 2.5 by 2.4 cm. There is eccentric dilation likely a small penetrating atherosclerotic ulcer. The celiac trunk, superior mesenteric artery, inferior mesenteric artery are patent. There is mild to moderate stenosis of the superior mesenteric artery. There are calcified and noncalcified atherosclerotic plaques in the aorta. No pulmonary embolism. The upper airway is normal. The thyroid is unremarkable. No supraclavicular, axillary mediastinal, or hilar lymphadenopathy. Severe coronary atherosclerosis present. No pericardial effusion. Mild right basilar atelectasis. No pulmonary consolidation. No pleural effusion. No pneumothorax. Abdomen/Pelvis: No focal liver lesion. Cholelithiasis without acute cholecystitis. There is a 1 cm cystic pancreatic lesion seen on series 6 image 294 of 641, could be side branch intraductal papillary mucinous neoplasm. The kidneys are symmetrically enhancing without hydronephrosis. There is a 1.2 cm left adrenal nodule seen on series 6 image 303 of 641. Right adrenal gland is normal. Phyllis-appearing mesentery likely panniculitis with reactive lymph nodes. Normal caliber small and large intestines. No sign of intestinal obstruction. The appendix is normal. Enlarged prostate. No organized fluid or free air in the pelvis. No pneumoperitoneum or ascites. Partially duplicated inferior vena cava. No pelvic or abdominal lymphadenopathy. Degenerative changes of the thoracic and lumbar spine. Anterolisthesis of L5 and S1. No suspicious osseous lesion. IMPRESSION: 1. Focal ectasia of the infrarenal abdominal aorta measuring 2.5 by 2.4 cm, likely a penetrating atherosclerotic ulcer or chronic focal dissection. 2. The 1 cm pancreatic head cystic lesion could represent side branch IPMN. Recommend follow up of the Incidental pancreatic lesion Additional Imaging In 12 Months with MRI pancreas. 3. Left adrenal 1.2 cm nodule probably adrenal adenoma. Recommend follow up of the Incidental adrenal nodule Additional Imaging In [address] or MRI. Dictated by: Spike Rider M.D. The radiology attending physician has personally reviewed this study, and had reviewed and/or edited this written report and agrees with it. Electronically signed by: Bi Patrick M.D. us Henok Small MD IMG CT PROCEDURES Fi nal Result * XR Chest 1 Vw Portable (12/21/2024 2:27 PM CDT) Anatomical Region Laterality Modality Body, Chest N/A Computed Radiogr aphy 12/21/2024 3:20 PM CDT Impressions 12/22/2024 4:57 AM CDT No prior examinations available for comparison. No focal pulmonary consolidation. No discernible pleural effusion or pneumothorax. Cardiomediastinal silhouette measures within normal limits. Atherosclerotic calcifications at the aortic arch. Minimal endplate spurring in the imaged thoracic spine. Mild degenerative changes in the bilateral acromioclavicular joints. Dictated by: Sis Michelle M.D. The radiology attending physician has personally reviewed this study, and had reviewed and/or edited this written report and agrees with it. Electronically signed by: Suri Morales M.D. Narrative 12/22/2024 4:57 AM CDT EXAMINATION: 1 view chest radiograph Procedure Note Suri Morales MD - 12/22/2024 EXAMINATION: 1 view chest radiograph IMPRESSION: No prior examinations available for comparison. No focal pulmonary consolidation. No discernible pleural effusion or pneumothorax. Cardiomediastinal silhouette measures within normal limits. Atherosclerotic calcifications at the aortic arch. Minimal endplate spurring in the imaged thoracic spine. Mild degenerative changes in the bilateral acromioclavicular joints. Dictated by: Sis Michelle M.D. The radiology attending physician has personally reviewed this study, and had reviewed and/or edited this written report and agrees with it. Electronically signed by: Suri Morales M.D. Henok Small MD IMG XR PROCEDURES Fi nal Result * RPR Blood (12/21/2024 2:07 PM CDT) RPR Nonreactive Nonreactive Blood 12/21/2024 2:07 PM CDT 12/21/2024 2:35 PM CDT Henok Small MD LAB MICROBIOLOGY - G ENERAL ORDERABLES Final Result [facility] [place] [address] * eGFR (12/21/2024 11:54 AM CDT) eGFR 75 >=60 mL/min/1. 73 m2 Comment: Interpretive Data Reference Interval Normal >/= 90 mL/min/1.73m2 Mildly decreased* 60 - 89 mL/min/1.73m2 Mildly to moderately decreased 45 - 59 mL/min/1.73m2 Moderately to severely decreased 30 - 44 mL/min/1.73m2 Severely decreased 15 - 29 mL/min/1.73m2 Kidney Failure < 15 mL/min/1.73m2 *Relative to young adult level Estimated glomerular filtration rate is determined by the 2020 CKD-EPI equation recommended by the National Kidney Foundation (A Unifying Approach to GFR Estimation: Recommendations of the NKF-ASK Task Force on Reassessing the Inclusion of Race in Diagnosing Kidney Disease, JASN 202). The CKD-EPI equation should not be used for patients with unstable renal function and has not been validated in children and those over 70. Current interpretive data was last reviewed 2021. Blood 12/21/2024 11:5 4 AM CDT 12/21/2024 12:45 PM CDT us Pedrito Elizabeth MD LAB BLOOD ORDERAB LES Final Result [facility] [place] [address] * (ABNORMAL) Differential, auto (12/21/2024 11:54 AM CDT) Neutrophil abs 4.77 1.50 - 6.50 K/cumm Imm gran abs 0.02 0.00 - 0.10 K/cumm [facility] Lymphocyte abs 1.62 0.80 - 3.30 K/cumm [facility] Monocyte abs 0.82(H) 0.20 - 0.80 K/cumm [facility] Eosinophil abs 0.39 0.00 - 0.50 K/cumm [facility] Basophil abs 0.04 0.00 - 0.10 K/cumm [facility] Neutrophil pct 62.3 % [facility] Comment: Interpretive Data Percent cell count reference ranges are not reported, since discordance with absolute values may lead to misinterpretation of CBC data. Current Interpretive Data was last revised on 2017. Imm gran pct 0.3 % [facility] Comment: Interpretive Data Percent cell count reference ranges are not reported, since discordance with absolute values may lead to misinterpretation of CBC data. Current Interpretive Data was last revised on 2017. Lymphocyte pct 21.1 % [facility] Comment: Interpretive Data Percent cell count reference ranges are not reported, since discordance with absolute values may lead to misinterpretation of CBC data. Current Interpretive Data was last revised on 2017. Monocyte pct 10.7 % [facility] Comment: Interpretive Data Percent cell count reference ranges are not reported, since discordance with absolute values may lead to misinterpretation of CBC data. Current Interpretive Data was last revised on 2017. Eosinophil pct 5.1 % [facility] Comment: Interpretive Data Percent cell count reference ranges are not reported, since discordance with absolute values may lead to misinterpretation of CBC data. Current Interpretive Data was last revised on 2017. Basophil pct 0.5 % [facility] Comment: Interpretive Data Percent cell count reference ranges are not reported, since discordance with absolute values may lead to misinterpretation of CBC data. Current Interpretive Data was last revised on 2017. Blood 12/21/2024 11:5 4 AM CDT 12/21/2024 12:45 PM CDT us Pedrito Elizabeth MD LAB BLOOD ORDERAB LES Final Result [facility] [place] [address] * Thyroid Function [place] (12/21/2024 11:54 AM CDT) [facility] TSH 1.87 0.30 - 4.20 mcIUnit/mL Blood 12/21/2024 11:5 4 AM CDT 12/21/2024 12:45 PM CDT us Henok Small MD LAB BLOOD ORDERABLES Final Result Performing Organization Address [facility] Co de Phone Number [facility] [place] [address] * (ABNORMAL) CBC with auto differential (12/21/2024 11:54 AM CDT) [facility] WBC 7.66 3.80 - 9.90 K/cumm Hgb 13.0 13.0 - 17.5 g/dL [facility] Hct 38.9 38.9 - 50.3 % [facility] Plt 275 150 - 400 K/cumm [facility] MPV 10.4 9.1 - 12.3 fL [facility] RBC 4.06(L) 4.30 - 5.80 M/cumm [facility] MCV 95.8 81.3 - 96.4 fL [facility] MCH 32.0 27.1 - 33.3 pg [facility] MCHC 33.4 32.3 - 35.7 g/dL [facility] RDW CV 15.2(H) 11.1 - 14.9 % [facility] RDW SD 54.0(H) 35.7 - 48.1 fL [facility] NRBC abs 0.00 0.00 - 0.01 K/cumm [facility] Blood 12/21/2024 11:5 4 AM CDT 12/21/2024 12:45 PM CDT us Pedrito Elizabeth MD LAB BLOOD ORDERAB LES Final Result Performing Organization Address [facility] Co de Phone Number [facility] [place] [place] [address] * Folate (12/21/2024 11:54 AM CDT) Pathologist [facility] Folic acid 10.7 >=5.0 ng/mL Blood 12/21/2024 11:5 4 AM CDT 12/21/2024 12:45 PM CDT us Henok Small MD LAB BLOOD ORDERABLES Final Result Performing Organization Address [facility] Co de Phone Number [facility] [place] [address] * Vitamin B12 (12/21/2024 11:54 AM CDT) Pathologist [facility] Vitamin B12 307 230 - 1,250 pg/mL Blood 12/21/2024 11:5 4 AM CDT 12/21/2024 12:45 PM CDT Henok Small MD LAB BLOOD ORDERABLES Final Result Performing Organization Address [facility] Co de Phone Number [facility] [place] [employer] [place] [address] * Ethanol (12/21/2024 11:54 AM CDT) Ethanol <10 <=10 mg/dL Comment: Interpretive Data Legal limit of intoxication > or = 80 mg/dL Levels > or = 400 mg/dL are potentially TOXIC. Current interpretive data was last revised on 2018. Blood 12/21/2024 11:5 4 AM CDT 12/21/2024 12:45 PM CDT Henok Small MD LAB BLOOD ORDERABLES Final Result [facility] [place] [address] * Comprehensive metabolic panel (12/21/2024 11:54 AM CDT) Sodium 143 135 - 145 mmol/L Potassium, pl 4.3 3.3 - 4.9 mmol/L [facility] Chloride 107 97 - 110 mmol/L [facility] CO2 26 22 - 32 mmol/L [facility] Anion gap 10 2 - 15 mmol/L [facility] BUN 16 6 - 25 mg/dL [facility] Creatinine 1.02 0.80 - 1.30 mg/dL [facility] Glucose 87 70 - 199 mg/dL [facility] Comment: Interpretive Data Fasting glucose >/= 126 mg/dl is diagnostic for diabetes. Fasting is defined as no caloric intake for at least 8 hours. Fasting glucose between 100 mg/dl to 125 mg/dl is diagnostic of prediabetes. In a patient with classic symptoms of hyperglycemia or hyperglycemic crisis, a random glucose >/= 200 mg/dl is diagnostic for diabetes. In the absence of unequivocal hyperglycemia, results should be confirmed by repeat testing. The classification and Diagnosis of Diabetes Diabetes Care 202; 46: S19-S40. Current interpretive data was last revised 2022. Calcium 10.1 8.5 - 10.3 mg/dL [facility] Bilirubin, total 0.5 0.1 - 1.2 mg/dL [facility] Protein, pl 7.6 6.5 - 8.5 g/dL [facility] Albumin 4.4 3.5 - 5.0 g/dL [facility] Alk phos 106 40 - 130 Units/L [facility] ALT 11 7 - 55 Units/L [facility] AST 23 10 - 50 Units/L [facility] Blood 12/21/2024 11:5 4 AM CDT 12/21/2024 12:45 PM CDT us Pedrito Elizabeth MD LAB BLOOD ORDERAB LES Final Result [facility] [place] [address] * ECG 12-LEAD (12/21/2024 10:48 AM CDT) Narrative [facility] - 12/21/2024 10:48 AM CDT Drew Ramsey MD 12/21/2024 10:49 AM ECG 12 lead Date/Time: 12/21/2024 10:48 AM Performed by: Drew Ramsey MD Authorized by: Urbano Edwards MD Comments: Electrocardiogram from 10:40 a.m. 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 Moderate risk for acute coronary syndrome Procedure Note Drew Ramsey MD - 12/21/2024 10:48 AM CDT Procedure ECG 12 lead Date/Time: 12/21/2024 10:48 AM Performed by: Drew Ramsey MD Authorized by: Urbano Edwards MD Comments: Electrocardiogram from 10:40 a.m. 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 Moderate risk for acutecoronary syndrome Drew Ramsey MD 12/21/24 1049 us Pedrito Elizabeth MD ECG ORDERABLES F inal Result [facility] * MRI Lumbar Spine WO Contrast (11/12/2024 4:27 PM CDT) Anatomical Region Laterality Modality Spine N/A Magnetic Resonan ce 11/13/2024 12:3 3 PM CDT Narrative 11/13/2024 12:43 PM CDT EXAM DESCRIPTION: MRI LUMBAR SPINE WO CONTRAST REASON FOR STUDY: WEAKNESS Pt c/o bilateral leg weakness, unable to walk, difficulty standing. Unknown amount of time. Poor historian. TECHNIQUE: Sagittal and Axial imaging includes T1, T2, STIR sequences. COMPARISON: No prior studies are available for comparison at time of this dictation. FINDINGS: SEGMENTATION: No transitional anatomy. The lowest well-developed disc space is labeled L5-S1. ALIGNMENT: Grade 1 anterolisthesis of L5 over S1 due to chronic bilateral pars interarticularis defects. Trace retrolisthesis of L2 over L3. VERTEBRAE: Vertebral body height well-maintained. hemangioma of the L5 vertebral body. . DISC HEIGHT: Moderate disc space height loss at L5-S1. CORD/CAUDA: Normal in size and signal intensity. Conus at the appropriate level. LOWER THORACIC: Incompletely imaged. No stenosis seen. INDIVIDUAL DISC LEVELS: L1-L2: Small symmetrical disc bulge. Mild bilateral facet arthropathy. Trace facet effusions. Mild bilateral neuroforaminal stenosis. No spinal canal stenosis. L2-L3: Small symmetrical disc bulge. Moderate bilateral facet arthropathy. Ligamentum flavum infolding. Trace facet effusions. Moderate left, mild right neuroforaminal stenosis. No spinal canal stenosis. Mild left lateral recess stenosis. L3-L4: No disc bulge. Moderate bilateral facet arthropathy. Ligamentum flavum infolding. Facet effusions. Moderate bilateral neuroforaminal stenosis. No spinal canal stenosis. L4-L5: Small symmetrical disc bulge. Moderate bilateral facet arthropathy. Ligamentum flavum infolding. Moderate left, mild right neuroforaminal stenosis. No spinal canal stenosis. L5-S1: Grade 1 anterolisthesis due to chronic bilateral pars interarticularis defects with uncovering of the disc and superimposed disc bulge. Severe bilateral facet arthropathy. Severe bilateral neuroforaminal stenosis. No spinal canal stenosis. Bilateral lateral recess stenosis. SACRUM: Visualized upper sacrum intact. VISUALIZED UPPER ABDOMEN: Multiple small renal cysts. On the localizer views there appears to be severe prostatomegaly. OTHER: No other significant findings. IMPRESSION: Grade 1 anterolisthesis of L5 over S1 due to chronic bilateral pars interarticularis defects resulting in severe bilateral neural foraminal stenosis. Additional multilevel degenerative changes of the lumbar spine as described above. No high-grade spinal canal stenosis. Severe prostatomegaly. THIS IS AN ELECTRONICALLY VERIFIED FINAL REPORT 11/13/2024 12:43 PM - Electronically signed by Delano Morales M.D. MM: MM Report ID: [id number] Reading Location: [id number] Procedure Note Delano Morales MD - 11/13/2024 EXAM DESCRIPTION: MRI LUMBAR SPINE WO CONTRAST REASON FOR STUDY: WEAKNESS Pt c/o bilateral leg weakness, unable to walk, difficulty standing.Unknown amount of time. Poor historian. TECHNIQUE: Sagittal and Axial imaging includes T1, T2, STIR sequences. COMPARISON: No prior studies are available for comparison at time ofthis dictation. FINDINGS: SEGMENTATION: No transitional anatomy. The lowest well-developed discspace is labeled L5-S1. ALIGNMENT: Grade 1 anterolisthesis of L5 over S1 due to chronicbilateral pars interarticularis defects. Trace retrolisthesis of L2 over L3. VERTEBRAE: Vertebral body height well-maintained. hemangioma of the L5 vertebral body. . DISC HEIGHT: Moderate disc space height loss at L5-S1. CORD/CAUDA: Normal in size and signal intensity. Conus at theappropriate level. LOWER THORACIC: Incompletely imaged. No stenosis seen. INDIVIDUAL DISC LEVELS: L1-L2: Small symmetrical disc bulge. Mild bilateral facet arthropathy. Trace facet effusions. Mild bilateral neuroforaminal stenosis. No spinal canal stenosis. L2-L3: Small symmetrical disc bulge. Moderate bilateral facetarthropathy. Ligamentum flavum infolding. Trace facet effusions. Moderate left, mild right neuroforaminal stenosis. No spinal canal stenosis. Mild leftlateral recess stenosis. L3-L4: No disc bulge. Moderate bilateral facet arthropathy. Ligamentum flavum infolding. Facet effusions. Moderate bilateral neuroforaminal stenosis. No spinal canal stenosis. L4-L5: Small symmetrical disc bulge. Moderate bilateral facetarthropathy. Ligamentum flavum infolding. Moderate left, mild right neuroforaminal stenosis. No spinal canal stenosis. L5-S1: Grade 1 anterolisthesis due to chronic bilateral pars interarticularis defects with uncovering of the disc and superimposed disc bulge. Severe bilateral facet arthropathy. Severe bilateralneuroforaminal stenosis. No spinal canal stenosis. Bilateral lateral recessstenosis. SACRUM: Visualized upper sacrum intact. VISUALIZED UPPER ABDOMEN: Multiple small renal cysts. On the localizer views there appears to be severe prostatomegaly. OTHER: No other significant findings. IMPRESSION: Grade 1 anterolisthesis of L5 over S1 due to chronic bilateral pars interarticularis defects resulting in severe bilateral neural foraminal stenosis. Additional multilevel degenerative changes of the lumbar spine asdescribed above. No high-grade spinal canal stenosis. Severe prostatomegaly. THIS IS AN ELECTRONICALLY VERIFIED FINAL REPORT 11/13/2024 12:43 PM - Electronically signed by Delano Morales M.D. MM: MM Report ID: [id number] Reading Location: [place] [id number] us Provider Transcribed Order IMG MRI PROCEDURES Fi nal Result from Last 3 Months Insurance IDPA [facility] MEDICARE HMO IDPA [employer] MEDICARE HMO Care Teams [address] Vendor Relationship Specialty Start Date End Date Abe Walden DO [address] [place] [address] [place] [address] PCP - General Internal Medicine 10/24/24
--- OUTSIDE RECORDS SUMMARY | 2024-12-25 14:36 | XMS_ITS | Encounter Summary ---
Author Organization [facility] Healthcare Address [address] [place] [address] Care Team Providers Care Synchronizer Name Role Phone Abe Walden DO Primary Care Provider +1- [phone] Encounter Details Date Type Department Care Team (Late st Contact Info) Description 12/24/2024 Results Follow-Up [facility] Emergency Department [address] [place] [address] Rajan Guzman, RN XR Chest 1 Vw Portable Social History Tobacco Use Types Packs/Day Years [...] on file Sexual Orientation Not on file documented as of this encounter Plan of Treatment Not on file documented as of this encounter Visit Diagnoses Not on filedocumented in this encounter Care Teams Synchronizer Relationship Specialty Start Date End Date Abe Walden DO [facility] [facility] [address] [place] [address] PCP - General Internal Medicine 10/24/24 documented as of this encounter
--- OUTSIDE RECORDS SUMMARY | 2024-12-25 14:36 | XMS_ITS | Referral Summary ---
Author Organization [facility] Address [address] [place] [address] Care Team Providers Care Editorial Intern Name Role Phone MyrandaAbe cisseSilvana PATHAK Primary Care Provider +1- [phone] Encounters Date Type Department Care Team Description 12/24/2024 Results Follow-Up [facility] Emergency Department [address] [place] [address] Rajan Guzman RN XR Chest 1 Vw Portable 12/21/2024 12:21 PM CDT - 12/21/2024 6:39 PM CDT Emergency [facility] Emergency Department [address] [place] [address] Pedrito Elizabeth MD Schneider, John Elliott, MD Dizziness (Primary Dx); Cerebral ventricular distension; Aortic ectasia; Atherosclerotic ulcer of aorta; Pancreatic cyst Discharge Disposition: Left Against Medical Advice 11/26/2024 3:34 PM CDT - 11/26/2024 5:30 PM CDT Emergency [facility] Emergency Department [address] [place] [address] Right otitis media, unspecified otitis media type (Primary Dx); Otitis externa of right ear, unspecified chronicity, unspecified type Discharge Disposition: Discharge to home or self care 11/12/2024 3:48 PM CDT - 11/12/2024 11:59 PM CDT Hospital Encounter [facility] [address] [place] [address] Weakness; Repeated falls Discharge Disposition: Discharge to home or self care from Last 3 Months Allergies No known active allergies Medications amoxicillin-cla vulanate (AUGMENTIN) 875-125 mg per tablet Take 1 tablet by mouth every 12 (twelve) hours 14 tablet Active ciprofloxacin-d exAMETHasone (CIPRODEX) otic suspension Administer 4 drops into the right ear 2 (two) times a day 7.5 mL Active Social History Tobacco Use Types Packs/Day Years [...] 12/21/2024 10:37 AM CDT Plan of Treatment Not on file Procedures Procedure Name Priority Date/Time Associated Diagnosis [...] it. Electronically signed by: Bi Patrick M.D. Henok Small MD IMG CT PROCEDURES [...] 2:07 PM CDT 12/21/2024 2:35 PM CDT us Henok Small MD LAB MICROBIOLOGY - G ENERAL ORDERABLES Final Result Performing Organization Address City/[facility]/ZIP Co de Phone Number [facility] Department [place] [address] * eGFR (12/21/2024 11:54 AM CDT) eGFR [...] of Race in Diagnosing Kidney Disease, JASN 2020). The CKD-EPI equation should not be used for patients with unstable renal function and has not been validated in children and those over 70. Current interpretive data was last reviewed 2021. Blood 12/21/2024 11:5 4 AM CDT 12/21/2024 12:45 PM CDT us Pedrito Elizabeth MD LAB BLOOD ORDERAB LES Final Result Performing Organization Address City/[facility]/ZIP Co de Phone Number [facility] Department [place] [address] * (ABNORMAL) Differential, auto (12/21/2024 11:54 AM CDT) Neutrophil abs 4.77 1.50 - 6.50 K/cumm Imm gran abs 0.02 0.00 - 0.10 K/cumm [facility] Lymphocyte abs 1.62 0.80 - 3.30 K/cumm [facility] Monocyte abs 0.82(H) 0.20 - 0.80 K/cumm [facility] Eosinophil abs 0.39 0.00 - 0.50 K/cumm [facility] Basophil abs 0.04 0.00 - 0.10 K/cumm [facility] Neutrophil pct 62.3 % [facility] Comment: Interpretive Data Percent cell count reference ranges are not reported, since discordance with absolute values may lead to misinterpretation of CBC data. Current Interpretive Data was last revised on 2017. Imm gran pct 0.3 % [facility] Comment: Interpretive Data Percent cell count reference ranges are not reported, since discordance with absolute values may lead to misinterpretation of CBC data. Current Interpretive Data was last revised on 2017. Lymphocyte pct 21.1 % [facility] Comment: Interpretive Data Percent cell count reference ranges are not reported, since discordance with absolute values may lead to misinterpretation of CBC data. Current Interpretive Data was last revised on 2017. Monocyte pct 10.7 % [facility] Comment: Interpretive Data Percent cell count reference ranges are not reported, since discordance with absolute values may lead to misinterpretation of CBC data. Current Interpretive Data was last revised on 2017. Eosinophil pct 5.1 % [facility] Comment: Interpretive Data Percent cell count reference ranges are not reported, since discordance with absolute values may lead to misinterpretation of CBC data. Current Interpretive Data was last revised on 2017. Basophil pct 0.5 % [facility] Comment: Interpretive Data Percent cell count reference ranges are not reported, since discordance with absolute values may lead to misinterpretation of CBC data. Current Interpretive Data was last revised on 2017. Blood 12/21/2024 11:5 4 AM CDT 12/21/2024 12:45 PM CDT Pedrito Elizabeth MD LAB BLOOD ORDERAB LES Final Result Performing Organization Address City/[facility]/ZIP Co de Phone Number [facility] [place] [address] * Thyroid Function [place] (12/21/2024 11:54 AM CDT) [facility] TSH 1.87 0.30 - 4.20 mcIUnit/mL Blood 12/21/2024 11:5 4 AM CDT 12/21/2024 12:45 PM CDT Henok Small MD LAB BLOOD ORDERABLES Final Result Performing Organization Address City/[facility] Co de Phone Number [facility] [place] [place] [address] * (ABNORMAL) CBC with auto differential (12/21/2024 11:54 AM CDT) [facility] WBC 7.66 3.80 - 9.90 K/cumm Hgb 13.0 13.0 - 17.5 g/dL [facility] Hct 38.9 38.9 - 50.3 % [facility] Plt 275 150 - 400 K/cumm [facility] MPV 10.4 9.1 - 12.3 fL [facility] RBC 4.06(L) 4.30 - 5.80 M/cumm [facility] MCV 95.8 81.3 - 96.4 fL [facility] MCH 32.0 27.1 - 33.3 pg [facility] MCHC 33.4 32.3 - 35.7 g/dL [facility] RDW CV 15.2(H) 11.1 - 14.9 % [facility] RDW SD 54.0(H) 35.7 - 48.1 fL [facility] NRBC abs 0.00 0.00 - 0.01 K/cumm [facility] Blood 12/21/2024 11:5 4 AM CDT 12/21/2024 12:45 PM CDT us Pedrito Elizabeth MD LAB BLOOD ORDERAB LES Final Result Performing Organization Address [facility] [place] [address] * Folate (12/21/2024 11:54 AM CDT) Folic acid 10.7 >=5.0 ng/mL Blood 12/21/2024 11:5 4 AM CDT 12/21/2024 12:45 PM CDT Henok Small MD LAB BLOOD ORDERABLES Final Result Performing Organization Address [facility] de Phone Number [facility] [place] [address] * Vitamin B12 (12/21/2024 11:54 AM CDT) Pathologist [facility] Vitamin B12 307 230 - 1,250 pg/mL Blood 12/21/2024 11:5 4 AM CDT 12/21/2024 12:45 PM CDT Henok Small MD LAB BLOOD ORDERABLES Final Result Performing Organization Address [facility] de Phone Number [facility] [place] [address] * Ethanol (12/21/2024 11:54 AM CDT) Pathologist [facility] Ethanol <10 <=10 mg/dL Comment: Interpretive Data Legal limit of intoxication > or = 80 mg/dL Levels > or = 400 mg/dL are potentially TOXIC. Current interpretive data was last revised on 2018. Blood 12/21/2024 11:5 4 AM CDT 12/21/2024 12:45 PM CDT Henok Small MD LAB BLOOD ORDERABLES Final Result Performing Organization Address City/[facility] Co de Phone Number [facility] One [facility] Department [place] [address] * Comprehensive metabolic panel (12/21/2024 11:54 AM CDT) Sodium 143 135 - 145 mmol/L Potassium, pl 4.3 3.3 - 4.9 mmol/L [facility] Chloride 107 97 - 110 mmol/L [facility] CO2 26 22 - 32 mmol/L [facility] Anion gap 10 2 - 15 mmol/L [facility] BUN 16 6 - 25 mg/dL [facility] Creatinine 1.02 0.80 - 1.30 mg/dL [facility] Glucose 87 70 - 199 mg/dL [facility] Comment: Interpretive Data Fasting glucose >/= [...] classification and Diagnosis of Diabetes Diabetes Care 2021; 46: S19-S40. Current interpretive data was last revised 2022. Calcium 10.1 8.5 - 10.3 mg/dL [facility] Bilirubin, total 0.5 0.1 - 1.2 mg/dL [facility] Protein, pl 7.6 6.5 - 8.5 g/dL [facility] Albumin 4.4 3.5 - 5.0 g/dL [facility] Alk phos 106 40 - 130 Units/L [facility] ALT 11 7 - 55 Units/L [facility] AST 23 10 - 50 Units/L [facility] Blood 12/21/2024 11:5 4 AM CDT 12/21/2024 12:45 PM CDT us Pedrito Elizabeth MD LAB BLOOD ORDERAB LES Final Result [facility] One [facility] Department [place] [address] * ECG 12-LEAD (12/21/2024 10:48 AM CDT) Narrative [facility] - 12/21/2024 10:48 AM CDT Drew Ramsey MD 12/21/2024 10:49 AM ECG 12 lead Date/Time: 12/21/2024 10:48 AM Performed by: Drew Ramsey MD Authorized by: Urbano Edwards MD Comments: Electrocardiogram from 10:40 a.m. manifest normal sinus rhythm at a rate of 74; normal IA, QRS, and QTC intervals; normal P and [...] sinus rhythm at arate of 74; normal IA, QRS, and QTC intervals; normal P and [...] Elizabeth MD ECG ORDERABLES F inal Result [facility] * MRI Lumbar Spine WO Contrast [...] Delano Morales M.D. MM: MM Report ID: [id number] Reading Location: [id number] Procedure Note Delano Morales MD - 11/13/2024 [...] Delano Morales M.D. MM: MM Report ID: [id number] Reading Location: [id number] us Provider Transcribed Order IMG MRI PROCEDURES Fi nal Result from Last 3 Months Insurance IDND [employer] MEDICARE HMO IDPA [employer] MED[employer] HMO Care Teams Editorial Intern Relationship Specialty Start Date End Date Abe Walden DO [facility] [facility] [address] [place], [place] [id number] PCP - General Internal Medicine 10/24/24
== END 2024-12-25 14:32 | disposition home or self-care (01) ==
PROVIDERS: PCP Internal Medicine; Visit Provider Nurse Practitioner
DX: R90.89 Other abnormal findings on diagnostic imaging of central nervous system (principal); M51.04 Intervertebral disc disorders with myelopathy, thoracic region; M50.31 Other cervical disc degeneration, high cervical region; M48.04 Spinal stenosis, thoracic region; M48.02 Spinal stenosis, cervical region
CPT/HCPCS: 72141; 72146

== ENCOUNTER 2024-12-31 08:34 | Outpatient (CLI) | payer MEDICARE, MEDICAID, SELFPAY ==
--- OUTSIDE RECORDS SUMMARY | 2024-12-31 08:37 | XMS_ITS | Clinical Summary ---
Author Organization [facility] [place] Address [address] [place] [address] Care Team Providers Care Chimney Sweeper Name Role Phone Abe Walden DO Primary Care Provider +1- [phone] Allergies No known active allergies Medications amoxicillin-cla vulanate (AUGMENTIN) 875-125 mg per tablet Take 1 tablet by mouth every 12 (twelve) hours 14 tablet 5 Active ciprofloxacin-d exAMETHasone (CIPRODEX) otic suspension Administer 4 drops into the right ear 2 (two) times a day 7.5 mL 5 Active Encounters Date Type Department Care Team Description 12/24/2024 Results Follow-Up [facility] Emergency Department 1 [place] [address] Rajan Guzman RN XR Chest 1 Vw Portable 12/21/2024 12:21 PM CDT - 12/21/2024 6:39 PM CDT Emergency [facility] Emergency Department 1 [place] [address] Pedrito Elizabeth MD Schneider, Horacio Noble MD Dizziness (Primary Dx); Cerebral ventricular distension; Aortic ectasia; Atherosclerotic ulcer of aorta; Pancreatic cyst Discharge Disposition: Left Against Medical Advice 11/26/2024 3:34 PM CDT - 11/26/2024 5:30 PM CDT Emergency [facility] Emergency Department 1 [place] [address] Right otitis media, unspecified otitis media type (Primary Dx); Otitis externa of right ear, unspecified chronicity, unspecified type Discharge Disposition: Discharge to home or self care 11/12/2024 3:48 PM CDT - 11/12/2024 11:59 PM CDT Hospital Encounter [facility] [address] [place] [address] Weakness; Repeated falls Discharge Disposition: Discharge to [...] MICROBIOLOGY - G ENERAL ORDERABLES Final Result [facility] Department [place] [address] * eGFR (12/21/2024 11:54 AM CDT) eGFR [...] MD LAB BLOOD ORDERAB LES Final Result [facility] [place] [address] * (ABNORMAL) Differential, auto (12/21/2024 11:54 AM CDT) Neutrophil abs 4.77 1.50 - 6.50 K/cumm Imm gran abs 0.02 0.00 - 0.10 K/cumm [facility] Lymphocyte abs 1.62 0.80 - 3.30 K/cumm [facility] Monocyte abs 0.82(H) 0.20 - 0.80 K/cumm [facility] Eosinophil abs 0.39 0.00 - 0.50 K/cumm [facility] Basophil abs 0.04 0.00 - 0.10 K/cumm [facility] Neutrophil pct 62.3 % [facility] Comment: Interpretive Data Percent cell count reference ranges are not reported, since discordance with absolute values may lead to misinterpretation of CBC data. Current Interpretive Data was last revised on 2017. Imm gran pct 0.3 % [facility] Comment: Interpretive Data Percent cell count reference ranges are not reported, since discordance with absolute values may lead to misinterpretation of CBC data. Current Interpretive Data was last revised on 2017. Lymphocyte pct 21.1 % [facility] Comment: Interpretive Data Percent cell count reference ranges are not reported, since discordance with absolute values may lead to misinterpretation of CBC data. Current Interpretive Data was last revised on 2017. Monocyte pct 10.7 % [facility] Comment: Interpretive Data Percent cell count reference ranges are not reported, since discordance with absolute values may lead to misinterpretation of CBC data. Current Interpretive Data was last revised on 2017. Eosinophil pct 5.1 % [facility] Comment: Interpretive Data Percent cell count reference ranges are not reported, since discordance with absolute values may lead to misinterpretation of CBC data. Current Interpretive Data was last revised on 2017. Basophil pct 0.5 % [facility] Comment: Interpretive Data Percent cell count reference ranges are not reported, since discordance with absolute values may lead to misinterpretation of CBC data. Current Interpretive Data was last revised on 2017. Blood 12/21/2024 11:5 4 AM CDT 12/21/2024 12:45 PM CDT us Pedrito Elizabeth MD LAB BLOOD ORDERAB LES Final Result [facility] Department [place] [address] * Thyroid Function [place] (12/21/2024 11:54 AM CDT) [facility] TSH 1.87 0.30 - 4.20 mcIUnit/mL Blood 12/21/2024 11:5 4 AM CDT 12/21/2024 12:45 PM CDT us Henok Small MD LAB BLOOD ORDERABLES Final Result Performing Organization Address City/[facility] Co de Phone Number [facility] Department [place] [address] * (ABNORMAL) CBC with auto differential (12/21/2024 11:54 AM CDT) [facility] WBC 7.66 3.80 - 9.90 K/cumm Hgb 13.0 13.0 - 17.5 g/dL [facility] Hct 38.9 38.9 - 50.3 % [facility] Plt 275 150 - 400 K/cumm [facility] MPV 10.4 9.1 - 12.3 fL [facility] RBC 4.06(L) 4.30 - 5.80 M/cumm [facility] MCV 95.8 81.3 - 96.4 fL [facility] MCH 32.0 27.1 - 33.3 pg [facility] MCHC 33.4 32.3 - 35.7 g/dL [facility] RDW CV 15.2(H) 11.1 - 14.9 % [facility] RDW SD 54.0(H) 35.7 - 48.1 fL [facility] NRBC abs 0.00 0.00 - 0.01 K/cumm [facility] Blood 12/21/2024 11:5 4 AM CDT 12/21/2024 12:45 PM CDT us Pedrito Elizabeth MD LAB BLOOD ORDERAB LES Final Result Performing Organization Address [facility] Co de Phone Number [facility] [place] [address] * Folate (12/21/2024 11:54 AM CDT) Pathologist [facility] Folic acid 10.7 >=5.0 ng/mL Blood 12/21/2024 11:5 4 AM CDT 12/21/2024 12:45 PM CDT us Henok Small MD LAB BLOOD ORDERABLES Final Result Performing Organization Address [facility] Co de Phone Number [facility] [place] [address] * Vitamin B12 (12/21/2024 11:54 AM CDT) Pathologist [facility] Vitamin B12 307 230 - 1,250 pg/mL Blood 12/21/2024 11:5 4 AM CDT 12/21/2024 12:45 PM CDT Henok Small MD LAB BLOOD ORDERABLES Final Result Performing Organization Address [facility] Co de Phone Number [facility] [place] [employer] [place] [address] * Ethanol (12/21/2024 11:54 AM CDT) Ethanol <10 <=10 mg/dL Comment: Interpretive Data Legal limit of intoxication > or = 80 mg/dL Levels > or = 400 mg/dL are potentially TOXIC. Current interpretive data was last revised on 2018. Blood 12/21/2024 11:5 4 AM CDT 12/21/2024 12:45 PM CDT Henok Small MD LAB BLOOD ORDERABLES Final Result [facility] Department [place] [address] * Comprehensive metabolic panel (12/21/2024 11:54 AM CDT) Sodium 143 135 - 145 mmol/L Potassium, pl 4.3 3.3 - 4.9 mmol/L [facility] Chloride 107 97 - 110 mmol/L [facility] CO2 26 22 - 32 mmol/L [facility] Anion gap 10 2 - 15 mmol/L [facility] BUN 16 6 - 25 mg/dL [facility] Creatinine 1.02 0.80 - 1.30 mg/dL [facility] Glucose 87 70 - 199 mg/dL [facility] Comment: Interpretive Data Fasting glucose >/= 126 [...] 2022. Calcium 10.1 8.5 - 10.3 mg/dL [facility] Bilirubin, total 0.5 0.1 - 1.2 mg/dL [facility] Protein, pl 7.6 6.5 - 8.5 g/dL [facility] Albumin 4.4 3.5 - 5.0 g/dL [facility] Alk phos 106 40 - 130 Units/L [facility] ALT 11 7 - 55 Units/L [facility] AST 23 10 - 50 Units/L [facility] Blood 12/21/2024 11:5 4 AM CDT 12/21/2024 12:45 PM CDT us Pedrito Elizabeth MD LAB BLOOD ORDERAB LES Final Result [facility] Department [place] [address] * ECG 12-LEAD (12/21/2024 10:48 AM CDT) Narrative [facility] - 12/21/2024 10:48 AM CDT Drew Ramsey MD 12/21/2024 10:49 AM ECG 12 lead Date/Time: 12/21/2024 10:48 AM Performed by: Drew Ramsey MD Authorized by: Urbano Edwards MD Comments: Electrocardiogram from 10:40 a.m. manifest normal sinus rhythm at a rate of 74; normal NC, QRS, and QTC intervals; normal P and [...] sinus rhythm at arate of 74; normal NC, QRS, and QTC intervals; normal P and [...] Elizabeth MD ECG ORDERABLES F inal Result [facility] * MRI Lumbar Spine WO Contrast [...] Delano Morales M.D. MM: MM Report ID: [id number] Reading Location: [id number] Procedure Note Delano Morales MD - 11/13/2024 [...] Delano Morales M.D. MM: MM Report ID: [id number] Reading Location: [place] [address] us Provider Transcribed Order IMG MRI PROCEDURES Fi nal Result from Last [address] [facility] MEDICARE HMO [employer] MEDICARE HMO Care Teams Chimney Sweeper Relationship Specialty Start Date End Date Abe Walden DO [address] [place] [address] [place] [address] PCP - General Internal Medicine 10/24/24
--- OUTSIDE RECORDS SUMMARY | 2024-12-31 08:37 | XMS_ITS | Referral Summary ---
Author Organization [facility] Address [address] [place] [address] Care Team Providers Care Linseed Oil Refiner Name Role Phone MyrandaAbe cisseSilvana PATHAK Primary Care Provider +1- [phone] Encounters Date Type Department Care Team Description 12/24/2024 Results Follow-Up [facility] Emergency Department [address] [place] [address] Rajan Guzman RN XR Chest 1 Vw Portable 12/21/2024 12:21 PM CDT - 12/21/2024 6:39 PM CDT Emergency [facility] Emergency Department [address] [place] [address] Pedrito Elizabeth MD Schneider, John Elliott, MD Dizziness (Primary Dx); Cerebral ventricular distension; Aortic ectasia; Atherosclerotic ulcer of aorta; Pancreatic cyst Discharge Disposition: Left Against Medical Advice 11/26/2024 3:34 PM CDT - 11/26/2024 5:30 PM CDT Emergency [facility] Emergency Department 1 [place] [address] Right otitis media, unspecified otitis media type (Primary Dx); Otitis externa of right ear, unspecified chronicity, unspecified type Discharge Disposition: Discharge to home or self care 11/12/2024 3:48 PM CDT - 11/12/2024 11:59 PM CDT Hospital Encounter [facility] [address] [place] [address] Weakness; Repeated falls Discharge Disposition: Discharge to [...] ENERAL ORDERABLES Final Result Performing Organization Address City/[facility]/ZIP Co de Phone Number [facility] Department [place] [address] * eGFR (12/21/2024 11:54 AM CDT) eGFR [...] ORDERAB LES Final Result Performing Organization Address City/[facility]/ZIP Co de Phone Number [facility] [place] [address] * (ABNORMAL) Differential, auto (12/21/2024 11:54 AM CDT) Neutrophil abs 4.77 1.50 - 6.50 K/cumm Imm gran abs 0.02 0.00 - 0.10 K/cumm [facility] Lymphocyte abs 1.62 0.80 - 3.30 K/cumm [facility] Monocyte abs 0.82(H) 0.20 - 0.80 K/cumm [facility] Eosinophil abs 0.39 0.00 - 0.50 K/cumm [facility] Basophil abs 0.04 0.00 - 0.10 K/cumm [facility] Neutrophil pct 62.3 % [facility] Comment: Interpretive Data Percent cell count reference ranges are not reported, since discordance with absolute values may lead to misinterpretation of CBC data. Current Interpretive Data was last revised on 2017. Imm gran pct 0.3 % [facility] Comment: Interpretive Data Percent cell count reference ranges are not reported, since discordance with absolute values may lead to misinterpretation of CBC data. Current Interpretive Data was last revised on 2017. Lymphocyte pct 21.1 % [facility] Comment: Interpretive Data Percent cell count reference ranges are not reported, since discordance with absolute values may lead to misinterpretation of CBC data. Current Interpretive Data was last revised on 2017. Monocyte pct 10.7 % [facility] Comment: Interpretive Data Percent cell count reference ranges are not reported, since discordance with absolute values may lead to misinterpretation of CBC data. Current Interpretive Data was last revised on 2017. Eosinophil pct 5.1 % [facility] Comment: Interpretive Data Percent cell count reference ranges are not reported, since discordance with absolute values may lead to misinterpretation of CBC data. Current Interpretive Data was last revised on 2017. Basophil pct 0.5 % [facility] Comment: Interpretive Data Percent cell count reference ranges are not reported, since discordance with absolute values may lead to misinterpretation of CBC data. Current Interpretive Data was last revised on 2017. Blood 12/21/2024 11:5 4 AM CDT 12/21/2024 12:45 PM CDT Pedrito Elizabeth MD LAB BLOOD ORDERAB LES Final Result Performing Organization Address City/[facility]/ZIP Co de Phone Number [facility] [place] [address] * Thyroid Function [place] (12/21/2024 11:54 AM CDT) [facility] TSH 1.87 0.30 - 4.20 mcIUnit/mL Blood 12/21/2024 11:5 4 AM CDT 12/21/2024 12:45 PM CDT Henok Small MD LAB BLOOD ORDERABLES Final Result Performing Organization Address City/[facility] Co de Phone Number [facility] [place] [employer] [place] [address] * (ABNORMAL) CBC with auto differential (12/21/2024 11:54 AM CDT) [facility] WBC 7.66 3.80 - 9.90 K/cumm Hgb 13.0 13.0 - 17.5 g/dL [facility] Hct 38.9 38.9 - 50.3 % [facility] Plt 275 150 - 400 K/cumm [facility] MPV 10.4 9.1 - 12.3 fL [facility] RBC 4.06(L) 4.30 - 5.80 M/cumm [facility] MCV 95.8 81.3 - 96.4 fL [facility] MCH 32.0 27.1 - 33.3 pg [facility] MCHC 33.4 32.3 - 35.7 g/dL [facility] RDW CV 15.2(H) 11.1 - 14.9 % [facility] RDW SD 54.0(H) 35.7 - 48.1 fL [facility] NRBC abs 0.00 0.00 - 0.01 K/cumm [facility] Blood 12/21/2024 11:5 4 AM CDT 12/21/2024 12:45 PM CDT us Pedrito Elizabeth MD LAB BLOOD ORDERAB LES Final Result Performing Organization Address [facility] [place] [address] * Folate (12/21/2024 11:54 AM CDT) Folic acid 10.7 >=5.0 ng/mL Blood 12/21/2024 11:5 4 AM CDT 12/21/2024 12:45 PM CDT Henok Small MD LAB BLOOD ORDERABLES Final Result Performing Organization Address [facility] de Phone Number [facility] [place] [address] * Vitamin B12 (12/21/2024 11:54 AM CDT) Pathologist [facility] Vitamin B12 307 230 - 1,250 pg/mL Blood 12/21/2024 11:5 4 AM CDT 12/21/2024 12:45 PM CDT Henok Small MD LAB BLOOD ORDERABLES Final Result Performing Organization Address [facility] de Phone Number [facility] [place] [address] * Ethanol (12/21/2024 11:54 AM CDT) Pathologist [facility] Ethanol <10 <=10 mg/dL Comment: Interpretive Data Legal limit of intoxication > or = 80 mg/dL Levels > or = 400 mg/dL are potentially TOXIC. Current interpretive data was last revised on 2018. Blood 12/21/2024 11:5 4 AM CDT 12/21/2024 12:45 PM CDT Henok Small MD LAB BLOOD ORDERABLES Final Result Performing Organization Address City/[facility] Co de Phone Number [facility] Department [place] [address] * Comprehensive metabolic panel (12/21/2024 11:54 AM CDT) Sodium 143 135 - 145 mmol/L Potassium, pl 4.3 3.3 - 4.9 mmol/L [facility] Chloride 107 97 - 110 mmol/L [facility] CO2 26 22 - 32 mmol/L [facility] Anion gap 10 2 - 15 mmol/L [facility] BUN 16 6 - 25 mg/dL [facility] Creatinine 1.02 0.80 - 1.30 mg/dL [facility] Glucose 87 70 - 199 mg/dL [facility] Comment: Interpretive Data Fasting glucose >/= 126 [...] 2022. Calcium 10.1 8.5 - 10.3 mg/dL [facility] Bilirubin, total 0.5 0.1 - 1.2 mg/dL [facility] Protein, pl 7.6 6.5 - 8.5 g/dL [facility] Albumin 4.4 3.5 - 5.0 g/dL [facility] Alk phos 106 40 - 130 Units/L [facility] ALT 11 7 - 55 Units/L [facility] AST 23 10 - 50 Units/L [facility] Blood 12/21/2024 11:5 4 AM CDT 12/21/2024 12:45 PM CDT us Pedrito Elizabeth MD LAB BLOOD ORDERAB LES Final Result [facility] Department [place] [address] * ECG 12-LEAD (12/21/2024 10:48 AM CDT) Narrative [facility] - 12/21/2024 10:48 AM CDT Drew Ramsey MD 12/21/2024 10:49 AM ECG 12 lead Date/Time: 12/21/2024 10:48 AM Performed by: Drew Ramsey MD Authorized by: Urbano Edwards MD Comments: Electrocardiogram from 10:40 a.m. manifest normal sinus rhythm at a rate of 74; normal SD, QRS, and QTC intervals; normal P and [...] sinus rhythm at arate of 74; normal SD, QRS, and QTC intervals; normal P and [...] MD ECG ORDERABLES F inal Result [facility] * MRI Lumbar Spine WO Contrast (11/12/2024 [...] Delano Morales M.D. MM: MM Report ID: [id number] Reading Location: [id number] Procedure Note Delano Morales MD - 11/13/2024 [...] Delano Morales M.D. MM: MM Report ID: [id number] Reading Location: [id number] us Provider Transcribed Order IMG MRI PROCEDURES Fi nal Result from Last 3 Months Insurance [employer] MEDICARE HMO [employer] MEDICARE HMO Care Teams Linseed Oil Refiner Relationship Specialty Start Date End Date Abe Walden DO [facility] [address] [place], [place] [id number] PCP - General Internal Medicine 10/24/24
== END 2024-12-31 08:35 | disposition home or self-care (01) ==
LOC: ANHAUDIO 08:34
PROVIDERS: PCP Internal Medicine; Visit Provider Otolaryngology
DX: R42 Dizziness and giddiness (principal); H90.41 Sensorineural hearing loss, unilateral, right ear, with unrestricted hearing on the contralateral side; H90.72 Mixed conductive and sensorineural hearing loss, unilateral, left ear, with unrestricted hearing on the contralateral side; H74.8X1 Other specified disorders of right middle ear and mastoid; H74.92 Unspecified disorder of left middle ear and mastoid; Z86.19 Personal history of other infectious and parasitic diseases
CPT/HCPCS: 36415; 82550; 84165; 92557; 92567

== ENCOUNTER 2024-12-31 09:47 | Outpatient (CLI) | payer MEDICARE, MEDICAID, SELFPAY ==
--- OUTSIDE RECORDS SUMMARY | 2024-12-31 10:12 | XMS_ITS | Clinical Summary ---
Author Organization [facility] Address [address] [place] [address] Care Team Providers Care Epic Specialist Name Role Phone Abe Walden DO Primary Care Provider [phone]- [phone] Allergies No known active allergies Medications amoxicillin-cla vulanate (AUGMENTIN) 875-125 mg per tablet Take 1 tablet by mouth every 12 (twelve) hours 14 tablet 5 Active ciprofloxacin-d exAMETHasone (CIPRODEX) otic suspension Administer 4 drops into the right ear 2 (two) times a day 7.5 mL 5 Active Encounters Date Type Department Care Team Description 12/24/2024 Results Follow-Up [facility] Emergency Department 1 [place] [address] Rajan Guzman RN XR Chest 1 Vw Portable 12/21/2024 12:21 PM CDT - 12/21/2024 6:39 PM CDT Emergency [facility] Emergency Department 1 [place] [address] Pedrito Elizabeth MD Schneider, Horacio Noble MD Dizziness (Primary Dx); Cerebral ventricular distension; Aortic ectasia; Atherosclerotic ulcer of aorta; Pancreatic cyst Discharge Disposition: Left Against Medical Advice 11/26/2024 3:34 PM CDT - 11/26/2024 5:30 PM CDT Emergency [facility] Emergency Department [address] [place] [address] Right otitis media, unspecified otitis media type (Primary Dx); Otitis externa of right ear, unspecified chronicity, unspecified type Discharge Disposition: Discharge to home or self care 11/12/2024 3:48 PM CDT - 11/12/2024 11:59 PM CDT Hospital Encounter [facility] [address] [place] [address] Weakness; Repeated falls Discharge Disposition: Discharge to [...] MICROBIOLOGY - G ENERAL ORDERABLES Final Result [facility] [place] [address] * eGFR (12/21/2024 11:54 AM CDT) eGFR [...] MD LAB BLOOD ORDERAB LES Final Result [facility] [place] [address] * (ABNORMAL) Differential, auto (12/21/2024 11:54 AM CDT) Neutrophil abs 4.77 1.50 - 6.50 K/cumm Imm gran abs 0.02 0.00 - 0.10 K/cumm [facility] Lymphocyte abs 1.62 0.80 - 3.30 K/cumm [facility] Monocyte abs 0.82(H) 0.20 - 0.80 K/cumm [facility] Eosinophil abs 0.39 0.00 - 0.50 K/cumm [facility] Basophil abs 0.04 0.00 - 0.10 K/cumm [facility] Neutrophil pct 62.3 % [facility] Comment: Interpretive Data Percent cell count reference ranges are not reported, since discordance with absolute values may lead to misinterpretation of CBC data. Current Interpretive Data was last revised on 2017. Imm gran pct 0.3 % [facility] Comment: Interpretive Data Percent cell count reference ranges are not reported, since discordance with absolute values may lead to misinterpretation of CBC data. Current Interpretive Data was last revised on 2017. Lymphocyte pct 21.1 % [facility] Comment: Interpretive Data Percent cell count reference ranges are not reported, since discordance with absolute values may lead to misinterpretation of CBC data. Current Interpretive Data was last revised on 2017. Monocyte pct 10.7 % [facility] Comment: Interpretive Data Percent cell count reference ranges are not reported, since discordance with absolute values may lead to misinterpretation of CBC data. Current Interpretive Data was last revised on 2017. Eosinophil pct 5.1 % [facility] Comment: Interpretive Data Percent cell count reference ranges are not reported, since discordance with absolute values may lead to misinterpretation of CBC data. Current Interpretive Data was last revised on 2017. Basophil pct 0.5 % [facility] Comment: Interpretive Data Percent cell count reference ranges are not reported, since discordance with absolute values may lead to misinterpretation of CBC data. Current Interpretive Data was last revised on 2017. Blood 12/21/2024 11:5 4 AM CDT 12/21/2024 12:45 PM CDT us Pedrito Elizabeth MD LAB BLOOD ORDERAB LES Final Result [facility] [place] [address] * Thyroid Function [place] (12/21/2024 11:54 AM CDT) [facility] TSH 1.87 0.30 - 4.20 mcIUnit/mL Blood 12/21/2024 11:5 4 AM CDT 12/21/2024 12:45 PM CDT us Henok Small MD LAB BLOOD ORDERABLES Final Result Performing Organization Address City/[facility] Co de Phone Number [facility] Department [place] [address] * (ABNORMAL) CBC with auto differential (12/21/2024 11:54 AM CDT) [facility] WBC 7.66 3.80 - 9.90 K/cumm Hgb 13.0 13.0 - 17.5 g/dL [facility] Hct 38.9 38.9 - 50.3 % [facility] Plt 275 150 - 400 K/cumm [facility] MPV 10.4 9.1 - 12.3 fL [facility] RBC 4.06(L) 4.30 - 5.80 M/cumm [facility] MCV 95.8 81.3 - 96.4 fL [facility] MCH 32.0 27.1 - 33.3 pg [facility] MCHC 33.4 32.3 - 35.7 g/dL [facility] RDW CV 15.2(H) 11.1 - 14.9 % [facility] RDW SD 54.0(H) 35.7 - 48.1 fL [facility] NRBC abs 0.00 0.00 - 0.01 K/cumm [facility] Blood 12/21/2024 11:5 4 AM CDT 12/21/2024 12:45 PM CDT us Pedrito Elizabeth MD LAB BLOOD ORDERAB LES Final Result Performing Organization Address [facility] Co de Phone Number [facility] [place] [address] * Folate (12/21/2024 11:54 AM CDT) Pathologist [facility] Folic acid 10.7 >=5.0 ng/mL Blood 12/21/2024 11:5 4 AM CDT 12/21/2024 12:45 PM CDT us Henok Small MD LAB BLOOD ORDERABLES Final Result Performing Organization Address [facility] Co de Phone Number [facility] [place] [address] * Vitamin B12 (12/21/2024 11:54 AM CDT) Pathologist [facility] Vitamin B12 307 230 - 1,250 pg/mL Blood 12/21/2024 11:5 4 AM CDT 12/21/2024 12:45 PM CDT Henok Small MD LAB BLOOD ORDERABLES Final Result Performing Organization Address [facility] Co de Phone Number [facility] [place] [address] * Ethanol (12/21/2024 11:54 AM CDT) Ethanol <10 <=10 mg/dL Comment: Interpretive Data Legal limit of intoxication > or = 80 mg/dL Levels > or = 400 mg/dL are potentially TOXIC. Current interpretive data was last revised on 2018. Blood 12/21/2024 11:5 4 AM CDT 12/21/2024 12:45 PM CDT Henok Small MD LAB BLOOD ORDERABLES Final Result [facility] [place] [address] * Comprehensive metabolic panel (12/21/2024 11:54 AM CDT) Sodium 143 135 - 145 mmol/L Potassium, pl 4.3 3.3 - 4.9 mmol/L [facility] Chloride 107 97 - 110 mmol/L [facility] CO2 26 22 - 32 mmol/L [facility] Anion gap 10 2 - 15 mmol/L [facility] BUN 16 6 - 25 mg/dL [facility] Creatinine 1.02 0.80 - 1.30 mg/dL [facility] Glucose 87 70 - 199 mg/dL [facility] Comment: Interpretive Data Fasting glucose >/= 126 [...] 2022. Calcium 10.1 8.5 - 10.3 mg/dL [facility] Bilirubin, total 0.5 0.1 - 1.2 mg/dL [facility] Protein, pl 7.6 6.5 - 8.5 g/dL [facility] Albumin 4.4 3.5 - 5.0 g/dL [facility] Alk phos 106 40 - 130 Units/L [facility] ALT 11 7 - 55 Units/L [facility] AST 23 10 - 50 Units/L [facility] Blood 12/21/2024 11:5 4 AM CDT 12/21/2024 12:45 PM CDT us Pedrito Elizabeth MD LAB BLOOD ORDERAB LES Final Result [facility] [place] [address] * ECG 12-LEAD (12/21/2024 10:48 AM CDT) Narrative [facility] - 12/21/2024 10:48 AM CDT Drew Ramsey MD 12/21/2024 10:49 AM ECG 12 lead Date/Time: 12/21/2024 10:48 AM Performed by: Drew Ramsey MD Authorized by: Urbano Edwards MD Comments: Electrocardiogram from 10:40 a.m. manifest normal sinus rhythm at a rate of 74; normal [place], QRS, and QTC intervals; normal P and [...] sinus rhythm at arate of 74; normal [place], QRS, and QTC intervals; normal P and [...] Elizabeth MD ECG ORDERABLES F inal Result [facility] * MRI Lumbar Spine WO Contrast (11/12/2024 [...] Delano Morales M.D. MM: MM Report ID: [id number] Reading Location: [id number] Procedure Note Delano Morales MD - 11/13/2024 [...] Delano Morales M.D. MM: MM Report ID: [id number] Reading Location: [place] [address] us Provider Transcribed Order IMG MRI PROCEDURES Fi nal Result from Last 3 Months Insurance IDPA [facility] MEDICARE HMO [employer] MED[employer]ARE HMO Care Teams Epic Specialist Relationship Specialty Start Date End Date Abe Walden DO [address] [place] [address] [place] [address] PCP - General Internal Medicine 10/24/24
--- OUTSIDE RECORDS SUMMARY | 2024-12-31 10:12 | XMS_ITS | Referral Summary ---
Author Organization [facility] Address [address] [place] [address] Care Team Providers Care Mailing Section Clerk Name Role Phone MyrandaAbe cisseSilvana PATHAK Primary Care Provider +1- [phone] Encounters Date Type Department Care Team Description 12/24/2024 Results Follow-Up [facility] Emergency Department [address] [place] [address] Rajan Guzman RN XR Chest 1 Vw Portable 12/21/2024 12:21 PM CDT - 12/21/2024 6:39 PM CDT Emergency [facility] Emergency Department [address] [place] [address] Pedrito Elizabeth MD Schneider, John Elliott, MD Dizziness (Primary Dx); Cerebral ventricular distension; Aortic ectasia; Atherosclerotic ulcer of aorta; Pancreatic cyst Discharge Disposition: Left Against Medical Advice 11/26/2024 3:34 PM CDT - 11/26/2024 5:30 PM CDT Emergency [facility] Emergency Department 1 [place] [address] Right otitis media, unspecified otitis media type (Primary Dx); Otitis externa of right ear, unspecified chronicity, unspecified type Discharge Disposition: Discharge to home or self care 11/12/2024 3:48 PM CDT - 11/12/2024 11:59 PM CDT Hospital Encounter [facility] 1 [place] [address] Weakness; Repeated falls Discharge Disposition: Discharge to [...] effect or midline shift is present. The barrear-white matter differentiation is normal. The visualized portions [...] ENERAL ORDERABLES Final Result Performing Organization Address City/[facility]/ZIP Co de Phone Number [facility] Department [place] [address] * eGFR (12/21/2024 11:54 AM CDT) eGFR [...] ORDERAB LES Final Result Performing Organization Address City/[facility]/ZIP Co de Phone Number [facility] [place] [address] * (ABNORMAL) Differential, auto (12/21/2024 11:54 AM CDT) Neutrophil abs 4.77 1.50 - 6.50 K/cumm Imm gran abs 0.02 0.00 - 0.10 K/cumm [facility] Lymphocyte abs 1.62 0.80 - 3.30 K/cumm [facility] Monocyte abs 0.82(H) 0.20 - 0.80 K/cumm [facility] Eosinophil abs 0.39 0.00 - 0.50 K/cumm [facility] Basophil abs 0.04 0.00 - 0.10 K/cumm [facility] Neutrophil pct 62.3 % [facility] Comment: Interpretive Data Percent cell count reference ranges are not reported, since discordance with absolute values may lead to misinterpretation of CBC data. Current Interpretive Data was last revised on 2017. Imm gran pct 0.3 % [facility] Comment: Interpretive Data Percent cell count reference ranges are not reported, since discordance with absolute values may lead to misinterpretation of CBC data. Current Interpretive Data was last revised on 2017. Lymphocyte pct 21.1 % [facility] Comment: Interpretive Data Percent cell count reference ranges are not reported, since discordance with absolute values may lead to misinterpretation of CBC data. Current Interpretive Data was last revised on 2017. Monocyte pct 10.7 % [facility] Comment: Interpretive Data Percent cell count reference ranges are not reported, since discordance with absolute values may lead to misinterpretation of CBC data. Current Interpretive Data was last revised on 2017. Eosinophil pct 5.1 % [facility] Comment: Interpretive Data Percent cell count reference ranges are not reported, since discordance with absolute values may lead to misinterpretation of CBC data. Current Interpretive Data was last revised on 2017. Basophil pct 0.5 % [facility] Comment: Interpretive Data Percent cell count reference ranges are not reported, since discordance with absolute values may lead to misinterpretation of CBC data. Current Interpretive Data was last revised on 2017. Blood 12/21/2024 11:5 4 AM CDT 12/21/2024 12:45 PM CDT Pedrito Elizabeth MD LAB BLOOD ORDERAB LES Final Result Performing Organization Address City/[facility]/ZIP Co de Phone Number [facility] [address] * Thyroid Function [place] (12/21/2024 11:54 AM CDT) [facility] TSH 1.87 0.30 - 4.20 mcIUnit/mL Blood 12/21/2024 11:5 4 AM CDT 12/21/2024 12:45 PM CDT Henok Small MD LAB BLOOD ORDERABLES Final Result Performing Organization Address City/[facility] Co de Phone Number [facility] [place] [place] [address] * (ABNORMAL) CBC with auto differential (12/21/2024 11:54 AM CDT) [facility] WBC 7.66 3.80 - 9.90 K/cumm Hgb 13.0 13.0 - 17.5 g/dL [facility] Hct 38.9 38.9 - 50.3 % [facility] Plt 275 150 - 400 K/cumm [facility] MPV 10.4 9.1 - 12.3 fL [facility] RBC 4.06(L) 4.30 - 5.80 M/cumm [facility] MCV 95.8 81.3 - 96.4 fL [facility] MCH 32.0 27.1 - 33.3 pg [facility] MCHC 33.4 32.3 - 35.7 g/dL [facility] RDW CV 15.2(H) 11.1 - 14.9 % [facility] RDW SD 54.0(H) 35.7 - 48.1 fL [facility] NRBC abs 0.00 0.00 - 0.01 K/cumm [facility] Blood 12/21/2024 11:5 4 AM CDT 12/21/2024 12:45 PM CDT us Pedrito Elizabeth MD LAB BLOOD ORDERAB LES Final Result Performing Organization Address [facility] [place] [address] * Folate (12/21/2024 11:54 AM CDT) Folic acid 10.7 >=5.0 ng/mL Blood 12/21/2024 11:5 4 AM CDT 12/21/2024 12:45 PM CDT Henok Small MD LAB BLOOD ORDERABLES Final Result Performing Organization Address [facility] de Phone Number [facility] [place] [address] * Vitamin B12 (12/21/2024 11:54 AM CDT) Pathologist [facility] Vitamin B12 307 230 - 1,250 pg/mL Blood 12/21/2024 11:5 4 AM CDT 12/21/2024 12:45 PM CDT Henok Small MD LAB BLOOD ORDERABLES Final Result Performing Organization Address [facility] de Phone Number [facility] [place] [address] * Ethanol (12/21/2024 11:54 AM CDT) Pathologist [facility] Ethanol <10 <=10 mg/dL Comment: Interpretive Data Legal limit of intoxication > or = 80 mg/dL Levels > or = 400 mg/dL are potentially TOXIC. Current interpretive data was last revised on 2018. Blood 12/21/2024 11:5 4 AM CDT 12/21/2024 12:45 PM CDT Henok Small MD LAB BLOOD ORDERABLES Final Result Performing Organization Address City/[facility] Co de Phone Number [facility] [place] [address] * Comprehensive metabolic panel (12/21/2024 11:54 AM CDT) Sodium 143 135 - 145 mmol/L Potassium, pl 4.3 3.3 - 4.9 mmol/L [facility] Chloride 107 97 - 110 mmol/L [facility] CO2 26 22 - 32 mmol/L [facility] Anion gap 10 2 - 15 mmol/L [facility] BUN 16 6 - 25 mg/dL [facility] Creatinine 1.02 0.80 - 1.30 mg/dL [facility] Glucose 87 70 - 199 mg/dL [facility] Comment: Interpretive Data Fasting glucose >/= [...] Calcium 10.1 8.5 - 10.3 mg/dL [facility] Bilirubin, total 0.5 0.1 - 1.2 mg/dL [facility] Protein, pl 7.6 6.5 - 8.5 g/dL [facility] Albumin 4.4 3.5 - 5.0 g/dL [facility] Alk phos 106 40 - 130 Units/L [facility] ALT 11 7 - 55 Units/L [facility] AST 23 10 - 50 Units/L [facility] Blood 12/21/2024 11:5 4 AM CDT 12/21/2024 12:45 PM CDT us Pedrito Elizabeth MD LAB BLOOD ORDERAB LES Final Result [facility] [place] [address] * ECG 12-LEAD (12/21/2024 10:48 AM CDT) Narrative [facility] - 12/21/2024 10:48 AM CDT Drew Ramsey MD 12/21/2024 10:49 AM ECG 12 lead Date/Time: 12/21/2024 10:48 AM Performed by: Drew Ramsey MD Authorized by: Urbano Edwards MD Comments: Electrocardiogram from 10:40 a.m. manifest normal sinus rhythm at a rate of 74; normal [place], QRS, and QTC intervals; normal P and [...] sinus rhythm at arate of 74; normal [place], QRS, and QTC intervals; normal P and [...] MD ECG ORDERABLES F inal Result [facility] * MRI Lumbar Spine WO Contrast [...] Delano Morales M.D. MM: MM Report ID: [id number] Reading Location: [id number] Procedure Note Delano Morales MD - 11/13/2024 [...] Delano Morales M.D. MM: MM Report ID: [id number] Reading Location: [id number] us Provider Transcribed Order IMG MRI PROCEDURES Fi nal Result from Last 3 Months Insurance [employer] MEDICARE HMO [employer] HMO Care Teams Mailing Section Clerk Relationship Specialty Start Date End Date Abe Walden DO [facility] [address] [place], [place] [id number] PCP - General Internal Medicine 10/24/24
[2024-12-31 14:18] LABS: Creatine Kinase 87 U/L (55-170)
[2025-01-01 15:09] LABS: Albumin 3.6 g/dL (2.9-4.4); Alpha-1-Globulin 0.2 g/dL (0.0-0.4); Alpha-2-Globulin 1.0 g/dL (0.4-1.0); Gamma Globulin 0.9 g/dL (0.4-1.8)
== END 2024-12-31 09:48 | disposition home or self-care (01) ==
LOC: ANHGOSHLAB 09:48
PROVIDERS: PCP Internal Medicine; Visit Provider Nurse Practitioner
DX: N18.30 Chronic kidney disease, stage 3 unspecified (principal); R53.1 Weakness
CPT/HCPCS: 36415; 82550; 84165

== ENCOUNTER 2025-02-28 08:43 | Outpatient (CLI) | payer MEDICARE, MEDICAID, SELFPAY ==
--- NOTE | ~2025-02-28 | NM_ITS ---
EXAMINATION: NM dario stress w perfusion DATE: 02/28/2025 12:52 CDT INDICATION: Preprocedural encounter. TECHNIQUE: Rest images were obtained following intravenous administration of 11.1 mCi Tc99m tetrofosmin (Myoview). The patient was infused intravenously with Lexiscan (regadenoson). Then, 34 mCi Tc99m tetrofosmin (Myoview) was administered intravenously, and stress images were obtained. Data was recons tructed into short axis and horizontal and vertical long axis SPECT images. Gated SPECT images were also obtained. COMPARISON: None. FINDINGS: There is no definite reversible or fixed perfusion abnormality to suggest ischemia or infarction. There is no segmental wall motion abnormality. Left ventricular ejection fraction measures 74%. IMPRESSION: 1. No definite ischemia or infarct. 2. Normal left ventricular ejection fraction measuring 74%. Reviewed, dictated and finalized at location O.
--- OUTSIDE RECORDS SUMMARY | 2025-02-28 08:49 | XMS_ITS | Clinical Summary ---
Author Organization [facility] [place] Address [address] [place] [address] Care Team Providers Care Color Receiver Name Role Phone Abe Walden DO Primary Care Provider [phone]- [phone] Allergies No known active allergies Medications amoxicillin-cla vulanate (AUGMENTIN) 875-125 mg per tablet Take 1 tablet by mouth every 12 (twelve) hours 14 tablet 5 Active ciprofloxacin-d exAMETHasone (CIPRODEX) otic suspension Administer 4 drops into the right ear 2 (two) times a day 7.5 mL 5 Active Encounters Date Type Department Care Team Description 12/24/2024 Results Follow-Up [facility] Emergency Department [address] [place] [address] Rajan Guzman RN XR Chest 1 Vw Portable 12/21/2024 12:21 PM CDT - 12/21/2024 6:39 PM CDT Emergency [facility] Emergency Department [address] [place] [address] Pedrito Elizabeth MD Schneider, Horacio Noble MD Dizziness (Primary Dx); Cerebral ventricular distension; Aortic ectasia; Atherosclerotic ulcer of aorta; Pancreatic cyst Discharge Disposition: Left Against Medical Advice from Last 3 Months Social History Tobacco [...] ECG 12-LEAD STAT 12/21/2024 10:48 AM CDT from Last 3 Months Results * CT [...] it. Electronically signed by: Gabriele Morgan M.D. us Henok Small MD IMG CT [...] S1. No suspicious osseous lesion. Procedure Note Short, Bi Soto MD - 12/21/2024 EXAMINATION: CT ANGIOGRAPHY OF [...] by: Suri Morales M.D. Henok Small MD IM XR PROCEDURES Fi nal Result * RPR Blood (12/21/2024 2:07 PM CDT) RPR Nonreactive Nonreactive Blood 12/21/2024 2:07 PM CDT 12/21/2024 2:35 PM CDT Henok Small MD LAB MICROBIOLOGY - G ENERAL ORDERABLES Final Result Performing Organization Address City/[facility]/ZIP Co de Phone Number [facility] Department [place] [address] * eGFR (12/21/2024 11:54 AM CDT) eGFR [...] ORDERAB LES Final Result Performing Organization Address City/[facility]/ZIP Co de Phone Number [facility] [place] [address] * (ABNORMAL) Differential, auto (12/21/2024 11:54 AM CDT) Pathologist [facility] Neutrophil abs 4.77 1.50 - 6.50 K/cumm Imm gran abs 0.02 0.00 - 0.10 K/cumm [facility] Lymphocyte abs 1.62 0.80 - 3.30 K/cumm [facility] Monocyte abs 0.82(H) 0.20 - 0.80 K/cumm [facility] Eosinophil abs 0.39 0.00 - 0.50 K/cumm [facility] Basophil abs 0.04 0.00 - 0.10 K/cumm [facility] Neutrophil pct 62.3 % [facility] Comment: Interpretive Data Percent cell count reference ranges are not reported, since discordance with absolute values may lead to misinterpretation of CBC data. Current Interpretive Data was last revised on 2017. Imm gran pct 0.3 % [facility] Comment: Interpretive Data Percent cell count reference ranges are not reported, since discordance with absolute values may lead to misinterpretation of CBC data. Current Interpretive Data was last revised on 2017. Lymphocyte pct 21.1 % [facility] Comment: Interpretive Data Percent cell count reference ranges are not reported, since discordance with absolute values may lead to misinterpretation of CBC data. Current Interpretive Data was last revised on 2017. Monocyte pct 10.7 % [facility] Comment: Interpretive Data Percent cell count reference ranges are not reported, since discordance with absolute values may lead to misinterpretation of CBC data. Current Interpretive Data was last revised on 2017. Eosinophil pct 5.1 % [facility] Comment: Interpretive Data Percent cell count reference ranges are not reported, since discordance with absolute values may lead to misinterpretation of CBC data. Current Interpretive Data was last revised on 2017. Basophil pct 0.5 % [facility] Comment: Interpretive Data Percent cell count reference ranges are not reported, since discordance with absolute values may lead to misinterpretation of CBC data. Current Interpretive Data was last revised on 2017. Blood 12/21/2024 11:5 4 AM CDT 12/21/2024 12:45 PM CDT us Pedrito Elizabeth MD LAB BLOOD ORDERAB LES Final Result [facility] Department [place] [address] * Thyroid Function [place] (12/21/2024 11:54 AM CDT) TSH 1.87 0.30 - 4.20 mcIUnit/mL Blood 12/21/2024 11:5 4 AM CDT 12/21/2024 12:45 PM CDT us Henok Small MD LAB BLOOD ORDERABLES Final Result [facility] [place] [address] * (ABNORMAL) CBC with auto differential (12/21/2024 11:54 AM CDT) [facility] WBC 7.66 3.80 - 9.90 K/cumm Hgb 13.0 13.0 - 17.5 g/dL [facility] Hct 38.9 38.9 - 50.3 % [facility] Plt 275 150 - 400 K/cumm [facility] MPV 10.4 9.1 - 12.3 fL [facility] RBC 4.06(L) 4.30 - 5.80 M/cumm [facility] MCV 95.8 81.3 - 96.4 fL [facility] MCH 32.0 27.1 - 33.3 pg [facility] MCHC 33.4 32.3 - 35.7 g/dL [facility] RDW CV 15.2(H) 11.1 - 14.9 % [facility] RDW SD 54.0(H) 35.7 - 48.1 fL [facility] NRBC abs 0.00 0.00 - 0.01 K/cumm [facility] Blood 12/21/2024 11:5 4 AM CDT 12/21/2024 12:45 PM CDT us Pedrito Elizabeth MD LAB BLOOD ORDERAB LES Final Result [facility] [place] [address] * Folate (12/21/2024 11:54 AM CDT) [facility] Folic acid 10.7 >=5.0 ng/mL Blood 12/21/2024 11:5 4 AM CDT 12/21/2024 12:45 PM CDT Henok Smlal MD LAB BLOOD ORDERABLES Final Result Performing Organization Address [facility] Co de Phone Number [facility] [place] [address] * Vitamin B12 (12/21/2024 11:54 AM CDT) [facility] Vitamin B12 307 230 - 1,250 pg/mL Blood 12/21/2024 11:5 4 AM CDT 12/21/2024 12:45 PM CDT Henok Small MD LAB BLOOD ORDERABLES Final Result Performing Organization Address [facility] de Phone Number [facility] [place] [address] * Ethanol (12/21/2024 11:54 AM CDT) [facility] Ethanol <10 <=10 mg/dL Comment: Interpretive Data Legal limit of intoxication > or = 80 mg/dL Levels > or = 400 mg/dL are potentially TOXIC. Current interpretive data was last revised on 2018. Blood 12/21/2024 11:5 4 AM CDT 12/21/2024 12:45 PM CDT Henok Small MD LAB BLOOD ORDERABLES Final Result Performing Organization Address [facility] Co de Phone Number [facility] [place] [address] * Comprehensive metabolic panel (12/21/2024 11:54 AM CDT) [facility] Sodium 143 135 - 145 mmol/L Potassium, pl 4.3 3.3 - 4.9 mmol/L [facility] Chloride 107 97 - 110 mmol/L [facility] CO2 26 22 - 32 mmol/L [facility] Anion gap 10 2 - 15 mmol/L [facility] BUN 16 6 - 25 mg/dL [facility] Creatinine 1.02 0.80 - 1.30 mg/dL [facility] Glucose 87 70 - 199 mg/dL [facility] Comment: Interpretive Data Fasting glucose >/= [...] 2022. Calcium 10.1 8.5 - 10.3 mg/dL [facility] Bilirubin, total 0.5 0.1 - 1.2 mg/dL [facility] Protein, pl 7.6 6.5 - 8.5 g/dL [facility] Albumin 4.4 3.5 - 5.0 g/dL [facility] Alk phos 106 40 - 130 Units/L [facility] ALT 11 7 - 55 Units/L [facility] AST 23 10 - 50 Units/L [facility] Blood 12/21/2024 11:5 4 AM CDT 12/21/2024 12:45 PM CDT us Pedrito Elizabeth MD LAB BLOOD ORDERAB LES Final Result [facility] Department of Laboratories [place], [place] [id number] * ECG 12-LEAD (12/21/2024 10:48 AM CDT) Narrative [facility] - 12/21/2024 10:48 AM CDT Drew Ramsey MD 12/21/2024 10:49 AM ECG 12 lead Date/Time: 12/21/2024 10:48 AM Performed by: Drew Ramsey MD Authorized by: Urbano Edwards MD Comments: Electrocardiogram from 10:40 a.m. 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 Moderate risk for acutecoronary syndrome Drew Ramsey MD 12/21/24 1049 Pedrito Elizabeth MD ECG ORDERABLES F inal Result [facility] from Last 3 Months Insurance [employer] [place] [employer] [place] [employer] [place] [employer] [place] Care Teams Color Receiver Relationship Specialty Start Date End Date Abe Walden DO PCP - General Internal Medicine 10/24/24
--- OUTSIDE RECORDS SUMMARY | 2025-02-28 08:49 | XMS_ITS | Clinical Summary ---
Author Organization [facility] Address [address] [place] [address] Care Team Providers Care Power And Recovery Supervisor Name Role Phone Fartun Fang [facility] Primary Care Provider [phone] -[phone] Source Comments [facility] [employer],non-owned Affiliates and Associated Physician Practices is amultiple site organization consisting of ambulatory clinics and hospital sitesin [place], [place] and [place]. This disclosure is being madepursuant to the Care Everywhere program and may not contain all information available regarding this patient. Last updated 18.[facility] [employer] Allergies No known active allergies Medications * Be aware that medications may not be up to date on this document. Alwaysverify current medications with the patient. atorvastatin (Lipitor) 10 MG tablet Take 1 (one) tablet by mouth 01/20/2025 Active amLODIPine (Norvasc) 10 MG tablet Take 1 (one) tablet by mouth once daily 01/20/2025 Active lisinopril (Prinivil; Zestril) 40 MG tablet Take 1 (one) tablet by mouth once daily 01/20/2025 Active losartan-hydroC HLOROthiazide (Hyzaar) 100-25 MG tablet Take 1 (one) tablet by mouth once daily 02/08/2025 Active ALPRAZolam (Xanax) 0.5 MG tablet TAKE 1 TABLET BY MOUTH 1 TIME 30 TO 60 MINUTES BEFORE MRI 12/21/2024 Active Encounters Date Type Department Care Team Description 02/13/2025 11:00 AM CDT Office Visit [facility] - Vascular Surgery [address] [place] [address] Zainab Gilbert MD Chronic distal aortic occlusion (HCC) (Primary Dx) 02/13/2025 Travel 01/17/2025 Travel from Last 3 Months Social History Tobacco Use Types Packs/Day Years Used Date Smoking Tobacco: Never Smokeless Tobacco: Never Tobacco Cessation:Counseling Given: No Sex and Gender Information Value Date Recorded Sex Assigned at Not on file Legal Sex Male 9:43 AM CDT Gender Identity Not on file Sexual Orientation Not on file Last Filed Vital Signs Vital Sign Reading Time Taken Comments Blood Pressure 125/71 02/13/2025 10:07 AM CDT Pulse 77 02/13/2025 10:07 AM CDT Temperature 36.7 C (98 F) 02/13/2025 10:07 AM CDT Respiratory Rate - - Oxygen Saturation 95% 02/13/2025 10:07 AM CDT Inhaled Oxygen Concentration - - Weight 69.4 kg (153 lb) 02/13/2025 10:07 AM CDT Height 167.6 cm (5' 6) 02/13/2025 10:07 AM CDT Body Mass Index 24.69 02/13/2025 10:07 AM CDT Plan of Treatment Health Maintenance Due Date Last Done Comments DTAP/TDAP/TD VACCINES (1 - Tdap) 1964 PNEUMOCOCCAL VACCINE 50+ (1 of 1 - PCV) 1995 ZOSTER VACCINE (1 of 2) 1995 Respiratory Syncytial Virus (RSV) Vaccine Pt: or over 60 yrs (1 - 1-dose 75+ series) 2020 DEPRESSION SCREENING 06/06/2024 MEDICARE AWV CALENDAR YEAR 2024 COVID-19 VACCINE ( - 2023-2 5 season) 2025 INFLUENZA VACCINE (#1) 2025 HEPATITIS B VACCINE Aged Out No longe r eligible based on patient's age to complete this topic HIB VACCINE Aged Out No longer eligi ble based on patient's age to complete this topic HPV VACCINE Aged Out No longer eligi ble based on patient's age to complete this topic MENINGOCOCCAL (Group B) VACC INE SHARED DECISION-MAKING Aged Out No longer eligibl e based on patient's age to complete this topic MENINGOCOCCAL GROUPS A/C/Y/W VACCINE Aged Out No longer eligible b ased on patient's age to complete this topic Insurance [employer] Care Teams Power And Recovery Supervisor Relationship Specialty Start Date End Date Fartun Fang APRN-[employer] [address] [place] [address] PCP - General Nurse Practitioner 01/17/25
--- NOTE | 2025-02-28 09:04 | ECHO_ITS ---
Patient Info Name: Dion Burger Age: 79 years : 1945 Gender: Male Ht: 65 in Wt: 150 lbs BSA: 1.78 m2 HR: 84 bpm BP: 166 / 93 mmHg Technical Quality: Good Exam Date: 02/28/2025 9:18 AM Patient Status: O Admit Date: 02/28/2025 Exam Type: CA echo doppler color flow Complete two-dimensional, color flow and Doppler transthoracic echocardiogram is performed. Staff Referring Physician: Peter Escobar DO [place] Strip Inspector: Joan Nails Attending Provider: Peter Escobar DO Summary 1. Complete two-dimensional, color flow and Doppler transthoracic echocardiogram is performed. 2. Left ventricular chamber dimension is normal. 3. Left ventricular systolic function is normal, estimated at 65-70. 4. The left ventricular diastolic function is grade I diastolic dysfunction. 5. E/e' 10 is mildly elevated. 6. Atrial septal aneurysm without shunt by color doppler. 7. The aortic valve is not well visualized. Cannot determine number of aortic valve leaflets. 8. There is mild aortic valve sclerosis. 9. There is mild to moderate aortic valve regurgitation. Left Ventricle E/e' 10 is mildly elevated. Left ventricular chamber dimension is normal. Left ventricular systolic function is normal, estimated at 65-70. The left ventricular diastolic function is grade I diastolic dysfunction. Right Ventricle Right ventricular chamber dimension is normal. Right ventricular systolic function is normal and with normal TAPSE 2.2 cm. Left Atria Left atrial chamber dimension is normal. Right Atria Right atrial chamber dimension is normal. Atrial Septum Atrial septal aneurysm without shunt by color doppler. Aortic Valve The aortic valve is not well visualized. Cannot determine number of aortic valve leaflets. There is mild aortic valve sclerosis. There is no aortic valve stenosis by valve area and gradients. There is mild to moderate aortic valve regurgitation. Pulmonic Valve There is no pulmonic regurgitation. Mitral Valve There is no mitral valve stenosis. There is no mitral valve regurgitation. Tricuspid Valve There is no tricuspid valve regurgitation. Pericardium/Pleural There is no pericardial effusion. Inferior Vena Cava Normal inferior vena cava with >50% collapse upon inspiration consistent with normal right atrial pressure, 5 mmHg. Aorta The aortic root size at the sinus of Valsalva is normal. Left Ventricular Outflow Tract Name Value Normal LVOT 2D LVOT Diameter 2.0 cm LVOT Doppler LVOT Peak Velocity 106 cm/s LVOT Peak Gradient 4 mmHg LVOT Mean Gradient 2 mmHg LVOT VTI 21 cm LVOT Stroke Volume 64 ml LVOT CO 5.4 l/min LVOT CI 3.0 l/min/m2 Pulmonic Valve Name Value Normal RVOT Doppler RVOT Peak Velocity 69 cm/s RVOT Peak Gradient 2 mmHg PV Doppler PV Peak Velocity 80 cm/s PV Peak Gradient 3 mmHg Mitral Valve Name Value Normal MV Diastolic Function MV E Peak Velocity 59 cm/s MV A Peak Velocity 76 cm/s MV E/A 0.8 MV Decel Time (PW) 418 ms MV Annular TDI MV E/e' (Septal) 12.8 MV E/e' (Lateral) 8.5 MV E/e' (Average) 10.7 Tricuspid Valve Name Value Normal Estimated PAP/RSVP RA Pressure 5 mmHg <=5 Aortic Valve Name Value Normal AV Doppler AV Peak Velocity 130 cm/s AV Peak Gradient 7 mmHg AV Area (Cont Eq Joseph) 2.5 cm2 AV DI (Joseph) 0.82 AV Regurgitation 2D LVOT Area 3.0 cm2 Ventricles Name Value Normal LV Dimensions 2D/MM IVS Diastolic Thickness (2D) 0.9 cm 0.6-1.0 LVID Diastole (2D) 2.8 cm 4.2-5.8 LVIW Diastolic Thickness (2D) 1.0 cm 0.6-1.0 LVID Systole (2D) 2.0 cm 2.5-4.0 LVOT Diameter 2.0 cm LV Mass (2D Cubed) 74.35 g 88.00-224.00 LV Mass Index (2D Cubed) 42 g/m2 49-115 Relative Wall Thickness (2D) 0.74 <=0.42 LV Fractional Shortening/Ejection Fraction 2D/MM LV Fractional Shortening (2D) 29 % 25-43 LV EF (2D Teichholz) 57 % LV Diastolic Volume (4C MOD) 97 ml LV EF (4C MOD) 66 % LV Diastolic Volume (2C MOD) 81 ml LV EF (2C MOD) 71 % LV Diastolic Volume (BP MOD) 92 ml 62-150 LV Diastolic Volume Index (BP MOD) 52 ml/m2 34-74 LV Systolic Volume (BP MOD) 29 ml 21-61 LV Systolic Volume Index (BP MOD) 16 ml/m2 11-31 LV EF (BP MOD) 69 % 52-72 LV Diastolic Length (4C) 7.9 cm LV Systolic Length (4C) 6.8 cm LV Stroke Volume (4C MOD) 63 ml Atria Name Value Normal LA Dimensions LA Volume (4C A-L) 18 ml LA Volume (BP A-L) 22 ml RA Dimensions RA Area (4C) 9.0 cm2 <=18.0 Report Signatures
--- NOTE | 2025-02-28 09:04 | EST_ITS ---
Patient Info Name: Dion Burger Age: 79 years : 1945 Gender: Male Ht: 65 in Wt: 150 lbs BSA: 1.78 m2 Exam Date: 02/28/2025 9:04 AM Patient Status: O Admit Date: 02/28/2025 Exam Type: CA stress dario w NM A regadenoson stress test was performed. Staff Referring Physician: Jose M Koenig Attending Provider: Peter Escobar DO Exercise Technologist: Shelly Henderson Exercise Physician: Peter Escobar DO Summary 1. 1. Negative lexiscan stress test for ischemic ST changes by ECG criteria. 2. 2. Baseline hypertension with a hypotensive response to lexiscan. 3. 3. Nuclear scan to follow and will be reported separately. Please correlate with it. 4. 4. Patient informed of the above results. Protocol: Lexiscan Stress ECG Details Stage: REST Duration (min): 1 min : 42 sec HR (bpm): 86 SBP (mmHg): 171 DBP (mmHg): 84 Stage: REST Duration (min): 6 min : 25 sec HR (bpm): 97 SBP (mmHg): 171 DBP (mmHg): 84 Stage: STAGE 1 Duration (min): 0 min : 59 sec HR (bpm): 107 SBP (mmHg): 125 DBP (mmHg): 69 Stage: RECOVERY Duration (min): 1 min : 0 sec HR (bpm): 121 SBP (mmHg): 102 DBP (mmHg): 63 Stage: RECOVERY Duration (min): 2 min : 0 sec HR (bpm): 108 SBP (mmHg): 102 DBP (mmHg): 63 Stage: RECOVERY Duration (min): 3 min : 0 sec HR (bpm): 102 SBP (mmHg): 102 DBP (mmHg): 63 Stage: RECOVERY Duration (min): 4 min : 0 sec HR (bpm): 101 SBP (mmHg): 84 DBP (mmHg): 56 Stage: RECOVERY Duration (min): 5 min : 0 sec HR (bpm): 93 SBP (mmHg): 87 DBP (mmHg): 55 Stage: RECOVERY Duration (min): 6 min : 0 sec HR (bpm): 97 SBP (mmHg): 93 DBP (mmHg): 57 Stage: RECOVERY Duration (min): 7 min : 0 sec HR (bpm): 100 SBP (mmHg): 93 DBP (mmHg): 57 Stage: RECOVERY Duration (min): 8 min : 0 sec HR (bpm): 95 SBP (mmHg): 93 DBP (mmHg): 57 Stage: RECOVERY Duration (min): 8 min : 40 sec HR (bpm): 89 SBP (mmHg): 121 DBP (mmHg): 68 Rest HR: 97 bpm Peak HR: 129 bpm Rest Sys BP: 171 mmHg Peak Sys BP: 125 mmHg Max Pred HR: 141 bpm % Max Pred HR: 91 % Target HR: 120 bpm Max RPP: 16,125 bpm*mmHg BP Response: Patient exhibited a hypotensive response with stress Termination Reason: Completed protocol Cardiac Symptoms: Shortness of breath, Nausea Total Time: 1 min : 0 sec Rest Kent BP: 84 mmHg Peak Kent BP: 69 mmHg Total Dose: 0.4 mg Aminophylline Dose: 50 mg Resting ECG Sinus rhythm. Stress ECG No ST changes. Patient had intolerable symptoms and Aminophylline 50 mg IV x 1 given which resolved his symptoms. Arrhythmias None. Report Signatures
[2025-02-28 12:38] LABS: INR 1.0; Prothrombin Time 13.3 Seconds (11.1-14.7)
[2025-02-28 12:39] LABS: Partial Thromboplastin Time 27.9 Seconds (22.3-36.8)
[2025-02-28 12:48] LABS: Anion Gap 11 mmol/L (4-12); Blood Urea Nitrogen 34 mg/dL (9-20); Calcium 9.9 mg/dL (8.4-10.2); Carbon Dioxide 22 mmol/L (22-30); Chloride 107 mmol/L (98-107); Estimated Glomerular Filt Rate 57; Glucose 99 mg/dL (65-110); Potassium 4.7 mmol/L (3.4-5.0); Sodium 140 mmol/L (137-145)
== END 2025-02-28 08:44 | disposition home or self-care (01) ==
LOC: ANHCARD 08:43
PROVIDERS: PCP Internal Medicine; Referring Provider Anesthesiology; Visit Provider Internal Medicine Cardiovascular Disease
DX: N18.9 Chronic kidney disease, unspecified (principal); Z01.810 Encounter for preprocedural cardiovascular examination
CPT/HCPCS: 36415; 78452; 80048; 85610; 85730; 93017; 93306; A9502; J0280; J2785

== ENCOUNTER 2025-03-04 01:14 | Day surgery (SDC) | payer MEDICARE, MEDICAID, SELFPAY ==
[2025-02-26 10:55] VITALS: BMI 25.4
--- NOTE | 2025-02-26 11:07 | PC.NURSE ---
Addendum entered by Kath Bowie RN 06/04/25 14:36: PT unable to void at [facility] in Dr Hanna office aware, pt till have to do it DOS as only option, pt aware of risks of cancelling if abnormal and may have to cath if not able to JRRN Original Note: [facility] has started construction of its new state of the art ER which will open Spring 2026. With this, we anticipate parking may be a challenge for some our surgical patients and families. Parking spaces are limited but are available for all Surgical, obstetrics, and ER patients sharing this lot. If you arrive and find you are having a hard time finding a parking space, please note that we understand the challenges, please drive around the hospital and park near Hospital Entrance 1. When you enter this entrance, you can ask a volunteer to direct or take you back to the surgical waiting area to check in. We appreciate everyone?s understanding of these expected challenges while we build for your future. Report to the Outpatient Waiting Room, entrance under the green pavilion located off [address], at time __10:15am on date _03/04/25 . Planned Procedure Time: ___12:15pm .? Time changes happen often and if your time is changed the preop area will call you the afternoon before. - You and your visitor will be asked to self-screen and do not enter if you have any COVID symptoms. Please call surgeon if you need to reschedule. - A mask is optional within the hospital at this time. Patients may have clear liquids (water, carbonated beverages, clear teas, apple juice) until 3 hours prior to surgery with a maximum of 20 ounces. - No food from midnight until time of surgery and no smoking, or chewing tobacco (or any form of nicotine). No chewing gum, candy or mints. (0915am) Take only the following medications with a SIP of water on the morning of surgery: ____Amlodipine DO NOT STOP ANY OF YOUR OTHER PRESCRIPTION MEDICATIONS PRIOR TO SURGERY EXCEPT THE FOLLOWING Hold all vitamins and supplements for 3 days per anesthesiologist. Medications to discontinue per physician NONE Date to take last dose NONE Please no make-up, nail pashto, hairspray, perfume, deodorant, or body powder the day of surgery.? No jewelry (including any body piercings) or valuables the day of surgery, leave them at home.? Please take a shower or bath the night before, or the morning of, surgery with an antibacterial soap.? Wear comfortable, loose fitting clothing.? - Jewelry must be removed prior to entering the operating room.? Rings and piercings that are not removed may be cut off. - The hospital will not accept responsibility for valuables.? - Please leave all valuables, including medications, at home the day of surgery. If you are going home after surgery, a licensed special education bus driver must drive you home.? - NO public transportation without another adult if you receive anesthesia. - We recommend that an adult stay with you for 24 hours following discharge. - We also recommend that you do not drive, make important decision, drink alcoholic beverages, or take any drugs that were not prescribed by your health care provider for at least 24 hours after your discharge time. Follow any additional instructions given to you from your surgeon. Telephone instructions given to ____Patients sister Jessi and asked if any additional questions and then verbalized understanding. Patient advised to call surgeon office or pre surgery nurse liaison [phone] if any additional questions.
--- NOTE | 2025-03-03 16:59 | PM.IMHP ---
H&P: HPI History of Present Illness Date/Time: 03/03/25 16:59 Chief Complaint: Eustachian tube dysfunction with otitis media Narrative: Planned surgical procedure Review of Systems Review of Systems: All systems reviewed & are unremarkable except as noted in HPI and below [facility] Past Medical History Medical History Muscle weakness of all 4 extremities Lumbosacral radiculopathy Cervical myelopathy with cervical radiculopathy Swallowing difficulty Hyperkalemia Hypercalcemia CKD (chronic kidney disease) Insomnia Hypertension Family History Family History Father Patient's father is Mother Natural with unknown cause Social History Social History Social History: Caffeine- daily Smoking status: Never smoker Second hand tobacco smoke exposure: No Alcohol intake: never Substance use: never Substance use type: does not use Do You Feel Safe in your Home?: Yes Lack of Transportation: No Lack of Food: Never True Current Housing: I Have Housing Concerned About Future Housing: No Difficulty Paying Gas/Electric Bills: No Difficulty Paying for Meds: No Currently Unemployed: No Education: High School Diploma/GED Difficulty w/ Childcare or Family Care: No Living arrangements: with family Additional living arrangements comments: [facility] care concerns: No Meds Home Medications and Allergies Home Medications ?Medication ?Instructions ?Recorded ?Confirmed ?Type amlodipine 10 mg tablet See Rx Instructions .Route 08/31/24 02/26/25 Rx .COMPLEX #90 tabs atorvastatin 10 mg tablet 10 mg PO QHS #90 tabs 08/31/24 02/26/25 Rx Manual Wheelchair #1 ea 12/13/24 02/26/25 Rx losartan 100 1 tablet PO DAILY #90 tabs 02/08/25 02/26/25 Rx mg-hydrochlorothiazide 25 mg tablet Allergies Allergy/AdvReac Type Severity Reaction Status Date / Time No Known Allergies Allergy Verified 02/26/25 10:54 Exam Narrative: Left-sided fluid right-sided debris Assessment and Plan Assessment and plan (1) Hearing loss, bilateral: Code(s): H91.93 - Unspecified hearing loss, bilateral Status: Acute Assessment and Plan: Plan 0 are bilateral ear exam under anesthesia with left-sided myringotomy with tube insertion. Risks were discussed bleeding infection damage to surrounding structures total deafness cholesteatoma formation facial nerve paralysis need for further procedures failure of symptoms otorrhea. Persistent perforation. Time-out for time off school. Patient voiced understanding of these risks and agreed. Also discussed damage to surrounding structures or damage to any structure above the clavicle by myself in damage to any structure during the induction and maintenance of anesthesia. (2) Otitis media, left: Code(s): H66.92 - Otitis media, unspecified, left ear Status: Acute (3) Otitis externa of right ear: Code(s): H60.91 - Unspecified otitis externa, right ear Status: Acute
[2025-03-04] VITALS (8 sets, daily range): BP systolic 136–149; BP diastolic 72–86; PULSE 76–87; RESP 12–14; TEMP 36.2–36.8; O2SAT 95–100; BMI 25.6
--- OUTSIDE RECORDS SUMMARY | 2025-03-04 01:17 | XMS_ITS | Clinical Summary ---
Author Organization [facility] Address [address] [place] [address] Care Team Providers Care Nicking Machine Operator Name Role Phone Fartun Fang [facility] Primary Care Provider [phone] Source Comments [facility] [employer],non-owned Affiliates and Associated Physician Practices is amultiple site organization consisting of ambulatory clinics and hospital sitesin [place], [place], [place] and [place]. This disclosure is being madepursuant to the Care Everywhere program and may not contain all information available regarding this patient. Last updated 18.[facility] [employer] [facility] Allergies No known active allergies Medications * [...] Description 02/13/2025 11:00 AM CDT Office Visit [facility] - Vascular Surgery [address] [place] [address] Zainab Gilbert MD Chronic distal aortic occlusion [...] patient's age to complete this topic Insurance [facility] Care Teams Nicking Machine Operator Relationship Specialty Start Date End Date Fartun Fang APRN-ROAD MECHANIC [address] [place] [address] PCP - General Nurse Practitioner 01/17/25
--- OUTSIDE RECORDS SUMMARY | 2025-03-04 01:17 | XMS_ITS | Clinical Summary ---
Author Organization [facility] [place] Address [address] [place] [address] Care Team Providers Care Bottle Tester Name Role Phone Abe Walden DO Primary Care Provider [phone] Allergies No known active allergies Medications amoxicillin-cla vulanate (AUGMENTIN) 875-125 mg per tablet Take 1 tablet by mouth every 12 (twelve) hours 14 tablet 5 Active ciprofloxacin-d exAMETHasone (CIPRODEX) otic suspension Administer 4 drops into the right ear 2 (two) times a day 7.5 mL 5 Active Encounters Date Type Department Care Team Description 12/24/2024 Results Follow-Up [facility] Emergency Department [address] [place] [address] Rajan Guzman RN XR Chest 1 Vw Portable 12/21/2024 12:21 PM CDT - 12/21/2024 6:39 PM CDT Emergency [facility] Emergency Department [address] [place] [address] Pedrito Elizabeth MD Schneider, John Elliott, MD [...] ENERAL ORDERABLES Final Result Performing Organization Address City/[facility]/ZIP Co de Phone Number [facility] Department [place] [address] * eGFR (12/21/2024 11:54 AM CDT) eGFR [...] LAB BLOOD ORDERAB LES Final Result [facility] [place] [address] * (ABNORMAL) Differential, auto (12/21/2024 11:54 AM CDT) Neutrophil abs 4.77 1.50 - 6.50 K/cumm Imm gran abs 0.02 0.00 - 0.10 K/cumm [facility] Lymphocyte abs 1.62 0.80 - 3.30 K/cumm [facility] Monocyte abs 0.82(H) 0.20 - 0.80 K/cumm [facility] Eosinophil abs 0.39 0.00 - 0.50 K/cumm [facility] Basophil abs 0.04 0.00 - 0.10 K/cumm [facility] Neutrophil pct 62.3 % [facility] Comment: Interpretive Data Percent cell count reference ranges are not reported, since discordance with absolute values may lead to misinterpretation of CBC data. Current Interpretive Data was last revised on 2017. Imm gran pct 0.3 % [facility] Comment: Interpretive Data Percent cell count reference ranges are not reported, since discordance with absolute values may lead to misinterpretation of CBC data. Current Interpretive Data was last revised on 2017. Lymphocyte pct 21.1 % [facility] Comment: Interpretive Data Percent cell count reference ranges are not reported, since discordance with absolute values may lead to misinterpretation of CBC data. Current Interpretive Data was last revised on 2017. Monocyte pct 10.7 % [facility] Comment: Interpretive Data Percent cell count reference ranges are not reported, since discordance with absolute values may lead to misinterpretation of CBC data. Current Interpretive Data was last revised on 2017. Eosinophil pct 5.1 % [facility] Comment: Interpretive Data Percent cell count reference ranges are not reported, since discordance with absolute values may lead to misinterpretation of CBC data. Current Interpretive Data was last revised on 2017. Basophil pct 0.5 % [facility] Comment: Interpretive Data Percent cell count reference ranges are not reported, since discordance with absolute values may lead to misinterpretation of CBC data. Current Interpretive Data was last revised on 2017. Blood 12/21/2024 11:5 4 AM CDT 12/21/2024 12:45 PM CDT us Pedrito Elizabeth MD LAB BLOOD ORDERAB LES Final Result [facility] Department [place] [address] * Thyroid Function Farner (12/21/2024 11:54 AM CDT) Pathologist [facility] TSH 1.87 0.30 - 4.20 mcIUnit/mL Blood 12/21/2024 11:5 4 AM CDT 12/21/2024 12:45 PM CDT Henok Small MD LAB BLOOD ORDERABLES Final Result Performing Organization Address City/[facility]/ZIP Co de Phone Number [facility] [place] [address] * (ABNORMAL) CBC with auto differential (12/21/2024 11:54 AM CDT) [facility] WBC 7.66 3.80 - 9.90 K/cumm Hgb 13.0 13.0 - 17.5 g/dL [facility] Hct 38.9 38.9 - 50.3 % [facility] Plt 275 150 - 400 K/cumm [facility] MPV 10.4 9.1 - 12.3 fL [facility] RBC 4.06(L) 4.30 - 5.80 M/cumm [facility] MCV 95.8 81.3 - 96.4 fL [facility] MCH 32.0 27.1 - 33.3 pg [facility] MCHC 33.4 32.3 - 35.7 g/dL [facility] RDW CV 15.2(H) 11.1 - 14.9 % [facility] RDW SD 54.0(H) 35.7 - 48.1 fL [facility] NRBC abs 0.00 0.00 - 0.01 K/cumm [facility] Blood 12/21/2024 11:5 4 AM CDT 12/21/2024 12:45 PM CDT us Pedrito Elizabeth MD LAB BLOOD ORDERAB LES Final Result [facility] [place] [address] * Folate (12/21/2024 11:54 AM CDT) [facility] Folic acid 10.7 >=5.0 ng/mL Blood 12/21/2024 11:5 4 AM CDT 12/21/2024 12:45 PM CDT Henok Small MD LAB BLOOD ORDERABLES Final Result Performing Organization Address [facility] Co de Phone Number [facility] [place] [address] * Vitamin B12 (12/21/2024 11:54 AM CDT) [facility] Vitamin B12 307 230 - 1,250 pg/mL Blood 12/21/2024 11:5 4 AM CDT 12/21/2024 12:45 PM CDT Henok Small MD LAB BLOOD ORDERABLES Final Result Performing Organization Address [facility] de Phone Number [facility] [place] [address] * Ethanol (12/21/2024 11:54 AM CDT) [facility] Ethanol <10 <=10 mg/dL Comment: Interpretive Data Legal limit of intoxication > or = 80 mg/dL Levels > or = 400 mg/dL are potentially TOXIC. Current interpretive data was last revised on 2018. Blood 12/21/2024 11:5 4 AM CDT 12/21/2024 12:45 PM CDT Henok Small MD LAB BLOOD ORDERABLES Final Result Performing Organization Address [facility] Co de Phone Number [facility] [place] [address] * Comprehensive metabolic panel (12/21/2024 11:54 AM CDT) [facility] Sodium 143 135 - 145 mmol/L Potassium, pl 4.3 3.3 - 4.9 mmol/L [facility] Chloride 107 97 - 110 mmol/L [facility] CO2 26 22 - 32 mmol/L [facility] Anion gap 10 2 - 15 mmol/L [facility] BUN 16 6 - 25 mg/dL [facility] Creatinine 1.02 0.80 - 1.30 mg/dL [facility] Glucose 87 70 - 199 mg/dL [facility] Comment: Interpretive Data Fasting glucose >/= [...] 2022. Calcium 10.1 8.5 - 10.3 mg/dL [facility] Bilirubin, total 0.5 0.1 - 1.2 mg/dL [facility] Protein, pl 7.6 6.5 - 8.5 g/dL [facility] Albumin 4.4 3.5 - 5.0 g/dL [facility] Alk phos 106 40 - 130 Units/L [facility] ALT 11 7 - 55 Units/L [facility] AST 23 10 - 50 Units/L [facility] Blood 12/21/2024 11:5 4 AM CDT 12/21/2024 12:45 PM CDT us Pedrito Elizabeth MD LAB BLOOD ORDERAB LES Final Result [facility] Department [place] [address] * ECG 12-LEAD (12/21/2024 10:48 AM CDT) Narrative [facility] - 12/21/2024 10:48 AM CDT Drew Ramsey MD 12/21/2024 10:49 AM ECG 12 lead Date/Time: 12/21/2024 10:48 AM Performed by: Drew Ramsey MD Authorized by: Urbano Edwards MD Comments: Electrocardiogram from 10:40 a.m. manifest normal sinus rhythm at a rate of 74; normal WA, QRS, and QTC intervals; normal P and [...] sinus rhythm at arate of 74; normal WA, QRS, and QTC intervals; normal P and [...] MD ECG ORDERABLES F inal Result [facility] BJ from Last 3 Months Insurance [facility]PA [facility] MEDICARE HMO [employer] [facility] MEDICARE HMO Care Teams Bottle Tester Relationship Specialty Start Date End Date Abe Walden DO PCP - General Internal Medicine 10/24/24
--- NOTE | 2025-03-04 07:20 | WPDHPUPDATE1 ---
History and Physical Update Update Date/Time: 03/04/25 07:20 History and Physical has been reviewed, including an updated exam of the patient. There are NO changes in the patient's condition. Risks, benefits, and alternatives have been discussed and questions answered. Patient agrees to proceed with procedure.
--- NOTE | 2025-03-04 13:01 | WPDHPUPDATE1 ---
History and Physical Update Update Date/Time: 03/04/25 13:01 History and Physical has been reviewed, including an updated exam of the patient. There are NO changes in the patient's condition. Risks, benefits, and alternatives have been discussed and questions answered. Patient agrees to proceed with procedure. Procedure add bilateral cerumen removal
--- NOTE | 2025-03-04 13:11 | WPDANESEPPF ---
Anes - Initial Pre Proc Eval Procedure: Operation Date: 03/04/25 13:15 Proposed Procedures p Exam Under Anesthesia Bilateral Ears with Cerumen Removal, - Fabián Mccracken MD s Left Myringotomy with Insertion Of Tube - Fabián Mccracken MD Date/Time: 03/04/25 13:11 Surgeon: Fabián Mccracken MD Pre Op Diagnosis: otalgia, hearing loss, otitis media Patient Data Age: 79 Gender: M Height: 1.65 m Weight: 69.8 kg Last Vital Signs Temp 98.3 F 03/04/25 10:52 Pulse 81 03/04/25 10:52 Resp 14 03/04/25 10:52 BP 149/72 H 03/04/25 10:52 Pulse Ox 98 03/04/25 10:52 O2 Del Method Room Air 03/04/25 10:52 Allergies Allergy/AdvReac Type Severity Reaction Status Date / Time No Known Allergies Allergy Verified 02/26/25 10:54 Home Medications ?Medication ?Instructions ?Recorded ?Confirmed ?Type amlodipine 10 mg tablet See Rx Instructions .Route 08/31/24 02/26/25 Rx .COMPLEX #90 tabs atorvastatin 10 mg tablet 10 mg PO QHS #90 tabs 08/31/24 02/26/25 Rx Manual Wheelchair #1 ea 12/13/24 02/26/25 Rx losartan 100 1 tablet PO DAILY #90 tabs 02/08/25 02/26/25 Rx mg-hydrochlorothiazide 25 mg tablet Patient hx anesthesia problems: none Family hx anesthesia problems: none Results Review: All pre-operative results and documents have been reviewed as part of the pre-operative evaluation. [facility] Past Medical History Medical History Muscle weakness of all 4 extremities Lumbosacral radiculopathy Cervical myelopathy with cervical radiculopathy Swallowing difficulty Hyperkalemia Hypercalcemia CKD (chronic kidney disease) Insomnia Hypertension Family History Family History Father Patient's father is Mother Natural with unknown cause Social History Social History Social History: Caffeine- daily Smoking status: Never smoker Second hand tobacco smoke exposure: No Alcohol intake: never Substance use: never Substance use type: does not use Do You Feel Safe in your Home?: Yes Lack of Transportation: No Lack of Food: Never True Current Housing: I Have Housing Concerned About Future Housing: No Difficulty Paying Gas/Electric Bills: No Difficulty Paying for Meds: No Currently Unemployed: No Education: High School Diploma/GED Difficulty w/ Childcare or Family Care: No Living arrangements: with family Additional living arrangements comments: [facility] Spiritual care concerns: No Anes - Eval Final PreProcedure Day of Procedure 03/04/25 13:11 Patient weight: overweight Lungs: normal air movement Airway: Mallampati scale class II and special considerations (Teeth in very poor condition, apparently none are loose. ) Neurological: alert and oriented Last oral intake: >/= 8 hours ASA classification: III Emergent: no Anesthetic plan: proceed Anesthesia type and monitoring: general LMA and standard monitoring Results Review: All pre-operative results and documents have been reviewed as part of the pre-operative evaluation. HTN, hyperlipidemia, CKD noted. Informed Consent: The patient's anesthetic plan and its attendant risks and benefits were discussed with the patient/family/POA. Questions were solicited and answers provided to the satisfaction of the patient/family/POA.
[2025-03-04] MEDS: CIPROFLOXACIN HCL 0.3% OP SOLN 2.5 ML BTL 4 DROP LEFT EAR (13:38)
[2025-03-04] MEDS: LACTATED RINGERS 1,000 ML 30 ML IV CONT (13:43)
--- NOTE | 2025-03-04 13:51 | P.OP_ITS ---
Procedure Note - Detailed Date of Procedure 03/04/25 Pre-op Diagnosis hearing loss, otitis media, bilateral cerumen, left otitis media Post-op Diagnosis Same Procedure Performed 1. Bilateral ear exam under anesthesia 2. Bilateral cerumen removed 3. Left-sided myringotomy with tube insertion Surgeon Fabián Mccracken MD Anesthesia General Indications See above Findings Bilateral cerumen, right ear aerated, left ear fluid tube placed Description of Procedure Patient identified consent verified in the preoperative holding area. Patient brought to the operating. Time-out performed. General anesthesia induced, LMA secured. Patient prepped draped position procedure confirmed 2nd time-out performed. The microscope brought into the field. Right-sided viewed cerumen removed. Normal ear. Left-sided viewed cerumen removed. Fluid in the ear. Myringotomy made. Suctioned fluid suctioned out with a 3 [place] suction. 1.27 mm collar button tube placed. Drops placed. Patient tolerated the procedure very well no complication. Care the patient given Anesthesiology. No blood loss. Patient taken to PACU. Estimated Blood Loss 0 Drains No Packing No Pathology None sent Complications No immediate complications Condition Stable Disposition PACU [facility] Billing Surgery - Charge Forward: Surgery Billing
== END 2025-03-04 15:35 | disposition home or self-care (01) ==
PROVIDERS: PCP Internal Medicine; Visit Provider Otolaryngology
PROC: (CPT 92502; principal; 2025-03-04 13:15)
PROC: (CPT 69436; 2025-03-04 13:15)
DX: H91.93 Unspecified hearing loss, bilateral (principal); H66.92 Otitis media, unspecified, left ear; I12.9 Hypertensive chronic kidney disease with stage 1 through stage 4 chronic kidney disease, or unspecified chronic kidney disease; N18.9 Chronic kidney disease, unspecified; E78.5 Hyperlipidemia, unspecified; G47.00 Insomnia, unspecified; E83.52 Hypercalcemia; E87.5 Hyperkalemia
CPT/HCPCS: 69436; 69210; J1100; J2003; J2405; J2704; J3010; J7120

== ENCOUNTER 2025-06-04 13:09 | Outpatient (CLI) | payer MEDICARE, MEDICAID, SELFPAY ==
--- NOTE | ~2025-06-04 | XR_ITS ---
EXAMINATION: XR chest 2V 06/04/2025 14:18 INDICATION: Disease of the spinal cord PROCEDURE: 2 view chest COMPARISON: 09/11/2024 FINDINGS: The lungs are clear. The cardiomediastinal silhouette is within normal limits. There are no pleural effusions. There is no pneumothorax suspected. IMPRESSION: 1: NO ACUTE CARDIOPULMONARY DISEASE. Reviewed, dictated and finalized at location O. NGUAL ADMINISTRATIVE ASSISTANT
--- OUTSIDE RECORDS SUMMARY | 2025-06-04 13:37 | XMS_ITS | Clinical Summary ---
Author Organization [facility] [place] Address [address] [place] [address] Care Team Providers Care Road Mechanic Name Role Phone Abe Walden DO Primary Care Provider +1- [phone] Allergies No known active allergies Medications amoxicillin-cla vulanate (AUGMENTIN) 875-125 mg per tablet Take 1 tablet by mouth every 12 (twelve) hours 14 tablet 5 Active ciprofloxacin-d exAMETHasone (CIPRODEX) otic suspension Administer 4 drops into the right ear 2 (two) times a day 7.5 mL 5 Active Social History Tobacco Use Types Packs/Day [...] Depression Screening 1945 Fall Risk Assessment 1945 DTaP/Tdap/Td Vaccine (1 - Tdap) 1956 Hepatitis B Screening 1963 Pneumococcal vaccine 65+ (1 of 1 - PCV) 1995 Zoster Vaccine (1 of 2) 1995 Well Visit 65+ 2010 Influenza Vaccine (#1) 2025 Insurance [employer] MEDICARE HMO [employer]PA [facility] MEDICARE HMO Care Teams Road Mechanic Relationship Specialty Start Date End Date Abe Walden DO PCP - General Internal Medicine 10/24/24
[2025-06-04 14:11] LABS: Hematocrit 42.8 % (42.0-52.0); Hemoglobin 14.5 g/dL (14.0-18.0); Mean Corpuscular HGB Conc 33.9 g/dl (32-36); Mean Corpuscular Hemoglobin 32.9 pg (26-34); Mean Corpuscular Volume 97.1 fl (80-100); Platelet Count Result 323 k/mm3 (150-375); Red Blood Count 4.41 M/mm3 (4.6-6.20); White Blood Count 8.8 K/mm3 (4.5-10.0)
[2025-06-04 14:26] LABS: INR 1.0; Prothrombin Time 13.0 Seconds (11.1-14.7)
[2025-06-04 14:27] LABS: Partial Thromboplastin Time 28.7 Seconds (22.3-36.8)
[2025-06-04 14:35] LABS: Anion Gap 10 mmol/L (4-12); Blood Urea Nitrogen 28 mg/dL (9-20); Calcium 10.1 mg/dL (8.4-10.2); Carbon Dioxide 22 mmol/L (22-30); Chloride 109 mmol/L (98-107); Estimated Glomerular Filt Rate 58; Glucose 98 mg/dL (65-110); Potassium 4.3 mmol/L (3.4-5.0); Sodium 141 mmol/L (137-145)
== END 2025-06-04 13:10 | disposition home or self-care (01) ==
LOC: ANHSURGERY 13:18
PROVIDERS: PCP Internal Medicine; Visit Provider Neurological Surgery
DX: Z01.818 Encounter for other preprocedural examination (principal); G95.9 Disease of spinal cord, unspecified
CPT/HCPCS: 71046; 80048; 85027; 85610; 85730